=== PATIENT | female | born 1935 ===

== ENCOUNTER 2017-08-31 09:34 | Emergency (ER) | payer MEDICARE, MEDICAID ==
[2017-08-31 09:43] VITALS: BMI 23.8
[2017-08-31] MEDS ORDERED: Sodium Chloride 0.9% 1,000 ML IV STA (10:03)
[2017-08-31] MEDS ORDERED: Iohexol 240 (50 ml) PO ONE (10:03)
--- NOTE | 2017-08-31 10:14 | ED PDOC ---
HPI: Abdomen Time Seen by Provider: 08/31/17 09:52 Chief Complaint (Nursing): Abdominal Pain Chief Complaint (Provider): Abd pain History Per: Patient History/Exam Limitations: no limitations Onset/Duration Of Symptoms: Days (1 month) Current Symptoms Are (Timing): Still Present Additional History Per: Patient Additional Complaint(s): Diffuse abd pain, burning. Ongoing for 1 month. Nausea with it, but no vomit. No weakness, headaches, dizziness, cough, chest pain, dyspnea. Seen by Dr. Pritchett for it and got rx for a procedure she has not done yet. Pt. denies any diarrhea. No new food or drinks. Past Medical History Reviewed: Historical Data, Nursing Documentation, Vital Signs Vital Signs: Last Vital Signs Temp 97 F L 08/31/17 14:14 Pulse 87 08/31/17 14:14 Resp 19 08/31/17 14:14 BP 155/75 H 08/31/17 14:14 Pulse Ox 98 08/31/17 14:14 - Medical History PMH: Anxiety, HTN, Hypercholesterolemia, Hyperlipidemia, Osteoporosis Denies: Anemia, Chronic Kidney Disease - Surgical History Other surgeries: hysterectomy - Family History Family History: States: Unknown Family Hx - Living Arrangements Living Arrangements: With Family - Social History Current smoker - smoking cessation education provided: No Alcohol: None Drugs: Denies - Immunization History Hx Tetanus Toxoid Vaccination: No Hx Influenza Vaccination: Yes Hx Pneumococcal Vaccination: No - Home Medications Home Medications: Ambulatory Orders Medication Instructions Recorded Alprazolam [Xanax] 1 mg PO PRN PRN 10/10/15 Calcium Carbonate/Vitamin D3 1 tab PO DAILY 10/10/15 [Calcium 600-Vit D3 200 Tablet] Ibandronate Sodium 150 mg PO Q30D 10/10/15 Valsartan [Diovan] 160 mg PO DAILY 10/10/15 Acetaminophen [Tylenol Extra 1,000 mg PO BID #10 tablet 08/17/16 Strength] amLODIPine [Norvasc] 5 mg PO DAILY 08/17/16 Aspirin [Ecotrin] 81 mg PO DAILY 09/08/16 Bepotastine Besilate [Bepreve] 1 drop OU DAILY 09/08/16 traMADol [Ultram] 50 mg PO TID PRN 09/08/16 Pantoprazole [Protonix EC Tab] 40 mg PO DAILY #30 ect 09/11/16 Ciprofloxacin HCl [Cipro] 500 mg PO BID #6 tablet 01/05/17 Alendronate [Fosamax] 70 mg PO DAILY 08/31/17 Famotidine [Pepcid] 20 mg PO DAILY PRN #6 tab 08/31/17 - Allergies Allergies/Adverse Reactions: Allergies Allergy/AdvReac Type Severity Reaction Status Date / Time shrimp Allergy Verified 01/04/17 10:23 Review of Systems ROS Statement: Except As Marked, All Systems Reviewed And Found Negative Gastrointestinal: Positive for: Nausea, Abdominal Pain. Negative for: Vomiting Physical Exam - Reviewed Nursing Documentation Reviewed: Yes Vital Signs Reviewed: Yes - Physical Exam Appears: Positive for: Non-toxic, No Acute Distress Head Exam: Positive for: ATRAUMATIC, NORMAL INSPECTION, NORMOCEPHALIC Skin: Positive for: Normal Color, Warm, DRY Eye Exam: Positive for: EOMI, Normal appearance, PERRL ENT: Positive for: Normal ENT Inspection Neck: Positive for: Normal, Painless ROM Cardiovascular/Chest: Positive for: Regular Rate, Rhythm Respiratory: Positive for: CNT, Normal Breath Sounds Gastrointestinal/Abdominal: Positive for: Bowel Sounds, Soft, Tenderness (mild diffuse) Back: Positive for: Normal Inspection. Negative for: L CVA Tenderness, R CVA Tenderness Extremity: Positive for: Normal ROM. 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 Negative for: Motor/Sensory Deficits - Laboratory Results Result Diagrams: 08/31/17 10:25 08/31/17 10:25 Interpretation Of Abn Labs: no acute - ECG ECG: Positive for: Interpreted By Me, Viewed By Me ECG Rhythm: Positive for: Normal QRS, Normal ST Segment, Sinus Rhythm O2 Sat by Pulse Oximetry: 96 Pulse Ox Interpretation: Normal - CT Scan/US ct Other Rad Studies (CT/US): Read By Radiologist Other Rad Interpretation: no acute - Progress ED Course And Treament: 1422: Stable. AAOx3. Pain free. Tolerated po. No acute findings. Fu with pcp. Disposition - Clinical Impression Clinical Impression: Abdominal pain, Abnormal radiologic findings on diagnostic imaging of renal pelvis, ureter, or bladder - Patient ED Disposition Is Patient to be Admitted: No Counseled Patient/Family Regarding: Studies Performed, Diagnosis, Need For Followup - Disposition Referrals: [facility] [Outside] - 09/01/17 Disposition: Routine/Home Disposition Time: 14:24 Condition: STABLE Additional Instructions: Return if not better in 3 days. See the obgyn without fail in 3 days for adnexal structure seen on catscan. Devuelve si no mejor en 3 marie. Ronald el obgyn sin falta en 3 marie para la estructura anexial visto en catscan. Prescriptions: Famotidine [Pepcid] 20 mg PO DAILY PRN #6 tab PRN Reason: Pain Instructions: Acute Abdomen (Belly Pain), Adult (DC) Print Language: TURKMEN
[2017-08-31 10:38] LABS: BASO # 0.1 K/uL (0.0-0.2); EOS # 0.2 K/uL (0.0-0.7); EOS % 1.9 % (0.0-4.0); HEMOGLOBIN 11.7 g/dL (12.0-16.0); LYMPH # 1.7 K/uL (1.0-4.3); LYMPH % 21.7 % (20.0-40.0); MEAN CELL VOLUME 81.5 fl (81.0-99.0); MEAN CORPUSCULAR HEMOGLOBIN 26.4 pg (27.0-31.0); MEAN CORPUSCULAR HGB CONC 32.4 g/dL (33.0-37.0); MONO # 0.5 K/uL (0.0-0.8); MONO % 5.8 % (0.0-10.0); NEUT # 5.6 K/uL (1.8-7.0); NEUT % 69.6 % (50.0-75.0); RBC 4.41 Mil/uL (3.80-5.20); RED CELL DISTRIBUTION WIDTH 16.4 % (11.5-14.5); WHITE BLOOD COUNT 8.1 K/uL (4.8-10.8)
[2017-08-31 10:40] LABS: ALB/GLOB RATIO 1.1 (1.0-2.1); AST/SGOT 26 U/L (14-36); BLOOD UREA NITROGEN 16 mg/dl (7-17); CALCIUM 9.9 mg/dL (8.4-10.2); GFR AFRICAN-AMERICAN > 60; GFR NON-AFRICAN AMERICAN > 60
[2017-08-31 11:28] LABS: ALBUMIN 4.3 g/dL (3.5-5.0); ALT/SGPT 26 U/L (9-52); LIPASE 137 U/L (23-300)
[2017-08-31] MEDS ORDERED: Iohexol 300 100 ML IJ ONE (13:27)
--- NOTE | 2017-08-31 14:08 | CT ---
PROCEDURE: CT Abdomen and Pelvis with contrast HISTORY: COMPARISON: Multiple CT scans dating back to 10/10/2008None. TECHNIQUE: Contrast dose: 90 mL Omnipaque 300 Radiation dose: Total exam DLP = 423.7 mGy-cm. This CT exam was performed using one or more of the following dose reduction techniques: Automated exposure control, adjustment of the mA and/or kV according to patient size, and/or use of iterative reconstruction technique. FINDINGS: LOWER THORAX: Bibasilar atelectasis/scarring. Right lower lobe calcified granuloma. Heart size normal. LIVER: Unremarkable. No gross lesion or ductal dilatation. GALLBLADDER AND BILE DUCTS: Unremarkable. PANCREAS: Unremarkable. No gross lesion or ductal dilatation. SPLEEN: Unremarkable. ADRENALS: Unremarkable. No mass. KIDNEYS AND URETERS: Right lower pole cyst. No hydronephrosis. No solid mass. VASCULATURE: Calcific atherosclerosis. No aortic aneurysm. BOWEL: Colonic diverticulosis. No obstruction. No gross mural thickening. APPENDIX: Normal appendix. PERITONEUM: Unremarkable. No free fluid. No free air. LYMPH NODES: No enlarged lymph nodes. BLADDER: Unremarkable. REPRODUCTIVE: Stable 3.2 x 2.4 cm left adnexal soft tissue structure. BONES: No acute fracture. OTHER FINDINGS: None. IMPRESSION: No acute abdominal pelvic pathology. Chronic incidental findings as above.
[2017-08-31 14:14] VITALS: RESP 19; TEMP 97
--- NOTE | 2017-08-31 14:44 | CARD ---
APPROVED REPORT EKG Measurement Heart [id number] <Conclusion> Normal sinus rhythm Normal ECG
[2017-08-31 15:05] VITALS: BP 134/78; PULSE 78; O2SAT 98
== END 2017-08-31 15:05 | disposition home or self-care (01) ==
LOC: H.ER 09:34
DX: R10.9 Unspecified abdominal pain (principal); R93.41 Abnormal radiologic findings on diagnostic imaging of renal pelvis, ureter, or bladder; E78.00 Pure hypercholesterolemia, unspecified; F41.9 Anxiety disorder, unspecified; I10 Essential (primary) hypertension; M81.0 Age-related osteoporosis without current pathological fracture; Z79.82 Long term (current) use of aspirin; Z90.710 Acquired absence of both cervix and uterus
CPT/HCPCS: 74177; 80053; 83690; 84484; 85025; 93005; 96374; 99283; J7040; Q9966; Q9967

== ENCOUNTER 2017-10-31 15:15 | Emergency (ER) | payer MEDICARE, MEDICAID ==
[2017-10-31 15:16] VITALS: BMI 23.8
[2017-10-31 15:34] VITALS: RESP 16
[2017-10-31] MEDS ORDERED: Sodium Chloride 0.9% 1,000 ML IV STA (16:22)
[2017-10-31] MEDS ORDERED: Famotidine 20mg/50ml 20 MG/50 ML BAG IVPB ONE ×2 (16:30→16:53)
[2017-10-31 17:04] LABS: ALB/GLOB RATIO 1.1 (1.0-2.1); ALBUMIN 4.2 g/dL (3.5-5.0); ALT/SGPT 24 U/L (9-52); AST/SGOT 26 U/L (14-36); BLOOD UREA NITROGEN 16 mg/dl (7-17); GFR AFRICAN-AMERICAN > 60; GFR NON-AFRICAN AMERICAN > 60; LIPASE 139 U/L (23-300)
[2017-10-31 17:07] LABS: BASO % 0.6 % (0.0-2.0); EOS # 0.1 K/uL (0.0-0.7); EOS % 1.6 % (0.0-4.0); HEMOGLOBIN 11.3 g/dL (12.0-16.0); LYMPH # 1.4 K/uL (1.0-4.3); MEAN CELL VOLUME 83.8 fl (81.0-99.0); MEAN CORPUSCULAR HEMOGLOBIN 27.3 pg (27.0-31.0); MEAN CORPUSCULAR HGB CONC 32.6 g/dL (33.0-37.0); MEAN PLATELET VOLUME 8.8 fl (7.2-11.7); MONO # 0.5 K/uL (0.0-0.8); MONO % 6.7 % (0.0-10.0); NEUT # 4.8 K/uL (1.8-7.0); NEUT % 70.1 % (50.0-75.0); RBC 4.15 Mil/uL (3.80-5.20); RED CELL DISTRIBUTION WIDTH 15.9 % (11.5-14.5); WHITE BLOOD COUNT 6.9 K/uL (4.8-10.8)
--- NOTE | 2017-10-31 17:07 | ED PDOC ---
HPI: Abdomen Time Seen by Provider: 10/31/17 16:07 Chief Complaint (Nursing): Abdominal Pain Chief Complaint (Provider): Abdominal Pain History Per: Patient, Investigative Agent (#[id number]) History/Exam Limitations: no limitations Onset/Duration Of Symptoms: Days Outside of [place] travel?: No Location Of Pain/Discomfort: Periumbilical Additional Complaint(s): 82 year old female presents to the ED for evaluation of mid abdominal pain since eating dinner yesterday. Patient states her symptoms are associated wit dizziness(none now) and intermittent nausea, but no vomiting. Additionally, patient states she has been constipated for the last four days and is unsure if that is contributing to her symptoms. Patient took no medications prior to arrival. Patient reports a history of similar abdominal pain in the past. Patient was last seen here on August 31 for similar symptoms and had a CT done which resulted to be supposedly unremarkable. Otherwise: (-) chest pain, (-) shortness of breath, (-) cough, (-) headache, (-) rash, (-) recent travel, (-) urinary symptoms, (-) chills, (-) hematuria, (-) bloody stool, (-) palpitations (-) visual changes (-) joint pain. PMD: Dr. Pritchett Past Medical History Reviewed: Historical Data, Nursing Documentation, Vital Signs Vital Signs: Last Vital Signs Temp 98.5 F 10/31/17 20:11 Pulse 77 10/31/17 20:11 Resp 16 10/31/17 20:11 BP 135/79 10/31/17 20:11 Pulse Ox 100 11/02/17 20:54 - Medical History PMH: Anxiety, Diabetes, HTN, Hypercholesterolemia, Hyperlipidemia, Osteoporosis Denies: Anemia, Chronic Kidney Disease Other PMH: tubal ligation - Family History Family History: States: Unknown Family Hx - Social History Current smoker - smoking cessation education provided: No Alcohol: None Drugs: Denies - Home Medications Home Medications: Ambulatory Orders Medication Instructions Recorded Alprazolam [Xanax] 1 mg PO PRN PRN 10/10/15 Calcium Carbonate/Vitamin D3 1 tab PO DAILY 10/10/15 [Calcium 600-Vit D3 200 Tablet] Ibandronate Sodium 150 mg PO Q30D 10/10/15 Valsartan [Diovan] 160 mg PO DAILY 10/10/15 Acetaminophen [Tylenol Extra 1,000 mg PO BID #10 tablet 08/17/16 Strength] amLODIPine [Norvasc] 5 mg PO DAILY 08/17/16 Aspirin [Ecotrin] 81 mg PO DAILY 09/08/16 Bepotastine Besilate [Bepreve] 1 drop OU DAILY 09/08/16 traMADol [Ultram] 50 mg PO TID PRN 09/08/16 Pantoprazole [Protonix EC Tab] 40 mg PO DAILY #30 ect 09/11/16 Ciprofloxacin HCl [Cipro] 500 mg PO BID #6 tablet 01/05/17 Alendronate [Fosamax] 70 mg PO DAILY 08/31/17 Famotidine [Pepcid] 20 mg PO DAILY PRN #6 tab 08/31/17 Polyethylene Glycol 3350 [Miralax] 17 gm PO DAILY #204 gm 10/31/17 - Allergies Allergies/Adverse Reactions: Allergies Allergy/AdvReac Type Severity Reaction Status Date / Time shrimp Allergy Verified 01/04/17 10:23 Review of Systems ROS Statement: Except As Marked, All Systems Reviewed And Found Negative Constitutional: Negative for: Chills Cardiovascular: Negative for: Chest Pain Respiratory: Negative for: Cough, Shortness of Breath Gastrointestinal: Positive for: Nausea (intermittent), Abdominal Pain (mid), Constipation. Negative for: Vomiting, Hematochezia Genitourinary Female: Negative for: Hematuria Skin: Negative for: Rash Neurological: Positive for: Dizziness. Negative for: Headache Physical Exam - Reviewed Nursing Documentation Reviewed: Yes Vital Signs Reviewed: Yes - Physical Exam Comments: GENERAL APPEARANCE: Patient is awake, alert, oriented x 3, in no distress. SKIN: Warm, dry; (-) cyanosis. EYES: (-) conjunctival pallor, (-) scleral icterus. ENMT: Mucous membranes moist. NECK: Supple, FROM (-) tenderness, (-) stiffness, (-) lymphadenopathy. CHEST AND RESPIRATORY: (-) rales, (-) rhonchi, (-) wheezes; breath sounds equal bilaterally. Speaking in full sentences, respirations even and nonlabored. HEART AND CARDIOVASCULAR: (-) irregularity; (-) murmur, (-) gallop. ABDOMEN AND GI: (-) distention. Bowel sounds active x4; mild periumbilical tenderness, (-) guarding, (-) rebound, (-) palpable masses, (-) CVA tenderness. EXTREMITIES: (-) deformity, (-) edema, (-) calf tenderness (+) distal pulses. NEURO AND PSYCH: Mental status as above; (-) focal findings. Gait steady, speech clear. (-) facial asymmetry (-) aphasia - Laboratory Results Result Diagrams: 10/31/17 16:50 10/31/17 16:50 Urine dip results: Positive for: Bilirubin (small), Protein (trace). Negative for: Leukocyte Esterase, Blood, Nitrate, Ketones, Glucose - ECG O2 Sat by Pulse Oximetry: 100 (RA) Pulse Ox Interpretation: Normal Medical Decision Making Medical Decision Making: Impression: Abdominal Pain Plan: -- Glucose, Blood, POC -- IV Insertion -- Rn Wellness -- Zofran ODT 4 mg -- Pepcid 20 mg/50 ml Premix -- Sodium Chloride 1000 mls/hr -- Colace 200 mg PO -- EKG -- CMP -- Lipase -- Troponin I -- ED Urine Dipstick -- CBC with differentials -- CXR Two Views -- ABD 2 Views (Flat/UP or DECUB) Accucheck: 104 1710 CXR reviewed, radiology report follows COMPARISON: Frontal chest radiograph 03/14/2010. TECHNIQUE: Chest PA and lateral FINDINGS: LUNGS: No active pulmonary disease. Trace chronic fibrotic changes noted left base. PLEURA: No significant pleural effusion identified. No pneumothorax apparent. CARDIOVASCULAR: Normal. OSSEOUS STRUCTURES: No significant abnormalities. VISUALIZED UPPER ABDOMEN: Normal. OTHER FINDINGS: None. IMPRESSION: No interval acute cardiopulmonary disease appreciated. Left basilar chronic fibrosis again evident. 1745 KUB 2 views reviewed, radiology report follows HISTORY: constipation COMPARISON: No prior. FINDINGS: BOWEL: Moderate retained feces. No evidence of bowel obstruction. No hepatic or splenic enlargement. No masses or abnormal intra-abdominal calcifications. Is BONES: Normal. OTHER FINDINGS: None. IMPRESSION: No active disease. 1800 Labs reviewed. Magnesium Citrate 300 ml PO administered. 1930 Patient with small BM in ED. Patient reporting complete resolution of presenting symptoms at this time. On exam, patient remains AAOx3, in no acute distress. Lungs clear to auscultation, cardiac RRR, abdomen soft, non-tender, repeat neuro exam shows no focal findings. VSS, stable for discharge. Lab/Diagnostic results d/w the patient in [facility] detail. Diagnosis of abdominal pain, constipation d/w the patient. Based on history, exam and diagnostic results, plan will be for outpatient follow up. Patient instructed to follow-up with pmd / referral provided / the clinic in 1- 2 days without fail. Advised to take medication as prescribed. Return to the emergency room at any time for any new or worsening symptoms. Patient states she fully agrees with and understands discharge instructions. States that she agrees with the plan and disposition. Verbalized and repeated discharge instructions and plan. I have given the patient opportunity to ask any additional questions. Scribe Attestation: Documented by Charu Daugherty, acting as a scribe for Jacklyn Goff PA-C. Provider Scribe Attestation: All medical record entries made by the Scribe were at my direction and personally dictated by me. I have reviewed the chart and agree that the record accurately reflects my personal performance of the history, physical exam, medical decision making, and the department course for this patient. I have also personally directed, reviewed, and agree with the discharge instructions and disposition. Disposition - Clinical Impression Clinical Impression: Abdominal pain in female, Constipation, Dizziness - Patient ED Disposition Is Patient to be Admitted: No Counseled Patient/Family Regarding: Studies Performed, Diagnosis, Need For Followup, Rx Given - Disposition Referrals: Musa Ramirez MD [Staff Provider] - Disposition: Routine/Home Disposition Time: 19:41 Condition: STABLE Additional Instructions: FOLLOW UP WITH PMD/GI IN 1-2 DAYS WITHOUT FAIL. RETURN TO ED WITH ANY NEW OR WORSENING SYMPTOMS. Prescriptions: Polyethylene Glycol 3350 [Miralax] 17 gm PO DAILY #204 gm Instructions: Constipation in Adults, High Fiber Diet, Acute Abdomen (Belly Pain), Dizziness, Nonvertigo, (DC) Forms: [employer] (Mozambican) Print Language: BOTSWANAN - POA Present On Arrival: None Results - Lab Results Lab Results: 10/31/17 10/31/17 10/31/17 16:50 16:50 16:39 WBC 6.9 RBC 4.15 Hgb 11.3 L Hct 34.7 MCV 83.8 D MCH 27.3 MCHC 32.6 L RDW 15.9 H Plt Count 277 MPV 8.8 Neut % (Auto) 70.1 Lymph % (Auto) 21.0 [place] % (Auto) 6.7 Eos % (Auto) 1.6 Baso % (Auto) 0.6 Neut # (Auto) 4.8 Lymph # (Auto) 1.4 [place] # (Auto) 0.5 Eos # (Auto) 0.1 Baso # (Auto) 0.0 Sodium 142 Potassium 4.9 Chloride 104 Carbon Dioxide 29 Anion Gap 14 BUN 16 Creatinine 0.7 Est GFR ( Amer) > 60 Est GFR (Non-Af Amer) > 60 POC Glucose (mg/dL) 104 Random Glucose 110 H Calcium 10.0 Total Bilirubin 0.5 AST 26 ALT 24 Alkaline Phosphatase 69 Troponin I < 0.0120 Total Protein 8.1 Albumin 4.2 Globulin 3.9 Albumin/Globulin Ratio 1.1 Lipase 139
[2017-10-31] MEDS ORDERED: Magnesium Citrate Oral SOL (300 ml) PO STA (17:51)
[2017-10-31] MEDS ORDERED: Magnesium Citrate Oral SOL (300 ml) ONE (18:11)
--- NOTE | 2017-10-31 18:39 | RAD ---
HISTORY: constipation COMPARISON: No prior. FINDINGS: BOWEL: Moderate retained feces. No evidence of bowel obstruction. No hepatic or splenic enlargement. No masses or abnormal intra-abdominal calcifications. Is BONES: Normal. OTHER FINDINGS: None. IMPRESSION: No active disease.
--- NOTE | 2017-10-31 19:16 | RAD ---
HISTORY: dizziness COMPARISON: Frontal chest radiograph 03/14/2010. TECHNIQUE: Chest PA and lateral FINDINGS: LUNGS: No active pulmonary disease. Trace chronic fibrotic changes noted left base. PLEURA: No significant pleural effusion identified. No pneumothorax apparent. CARDIOVASCULAR: Normal. OSSEOUS STRUCTURES: No significant abnormalities. VISUALIZED UPPER ABDOMEN: Normal. OTHER FINDINGS: None. IMPRESSION: No interval acute cardiopulmonary disease appreciated. Left basilar chronic fibrosis again evident.
[2017-10-31 20:12] VITALS: BP 135/79; PULSE 77; TEMP 98.5
--- NOTE | 2017-11-01 16:45 | CARD ---
APPROVED REPORT EKG Measurement Heart [id number] ID [id number] <Conclusion> Normal sinus rhythm Normal ECG
[2017-11-02 20:48] VITALS: O2SAT 100
== END 2017-10-31 20:12 | disposition home or self-care (01) ==
LOC: H.ER 15:15
DX: R10.9 Unspecified abdominal pain (principal); K59.00 Constipation, unspecified; R42 Dizziness and giddiness; E11.9 Type 2 diabetes mellitus without complications; E78.00 Pure hypercholesterolemia, unspecified; F41.9 Anxiety disorder, unspecified; I10 Essential (primary) hypertension; M81.0 Age-related osteoporosis without current pathological fracture; Z79.82 Long term (current) use of aspirin
CPT/HCPCS: 71046; 74019; 80053; 82948; 83690; 84484; 85025; 93005; 96365; 99283; J7030

== ENCOUNTER 2017-12-31 11:42 | Emergency (ER) | payer MEDICARE, MEDICAID ==
[2017-12-31 11:44] VITALS: BMI 23.8
[2017-12-31 13:17] LABS: SQUAMOUS EPITHIAL 3 /hpf (0-5); URINE BILIRUBIN NEGATIVE (NEGATIVE); URINE BLOOD MODERATE (NEGATIVE); URINE CLARITY TURBID (Clear); URINE COLOR AMBER (YELLOW); URINE GLUCOSE (UA) NEG (Normal); URINE LEUKOCYTE ESTERASE LARGE Leu/uL (Negative); URINE PROTEIN 100 mg/dL (NEGATIVE); URINE UROBILINOGEN 0.2-1.0 mg/dL (0.2-1.0)
--- NOTE | 2017-12-31 13:17 | ED PDOC ---
HPI: Female Pain Time Seen by Provider: 12/31/17 12:17 Chief Complaint (Nursing): Female Genitourinary Chief Complaint (Provider): Female Genitourinary History Per: Patient History/Exam Limitations: no limitations Onset/Duration Of Symptoms: Days (x3) Current Symptoms Are (Timing): Still Present Additional Complaint(s): 82 year old female with a hx of osteoporosis, high cholesterol, and hypertension presents to the ED for evaluation of lower abdominal pain and dysuria for three days. She reports nausea but denies any fever or vomiting. PMD: Onel Pritchett Past Medical History Reviewed: Historical Data, Nursing Documentation, Vital Signs Vital Signs: Last Vital Signs Temp 98.2 F 12/31/17 12:07 Pulse 80 12/31/17 12:07 Resp 20 12/31/17 12:07 BP 151/71 H 12/31/17 12:07 Pulse Ox 97 12/31/17 12:07 - Medical History PMH: Anxiety, Diabetes, HTN, Hypercholesterolemia, Hyperlipidemia, Osteoporosis Denies: Anemia, Chronic Kidney Disease - Surgical History Surgical History: No Surg Hx - Family History Family History: States: Unknown Family Hx - Immunization History Hx Tetanus Toxoid Vaccination: No Hx Influenza Vaccination: Yes Hx Pneumococcal Vaccination: No - Home Medications Home Medications: Ambulatory Orders Medication Instructions Recorded Alprazolam [Xanax] 1 mg PO PRN PRN 10/10/15 Calcium Carbonate/Vitamin D3 1 tab PO DAILY 10/10/15 [Calcium 600-Vit D3 200 Tablet] Ibandronate Sodium 150 mg PO Q30D 10/10/15 Valsartan [Diovan] 160 mg PO DAILY 10/10/15 Acetaminophen [Tylenol Extra 1,000 mg PO BID #10 tablet 08/17/16 Strength] amLODIPine [Norvasc] 5 mg PO DAILY 08/17/16 Aspirin [Ecotrin] 81 mg PO DAILY 09/08/16 Bepotastine Besilate [Bepreve] 1 drop OU DAILY 09/08/16 traMADol [Ultram] 50 mg PO TID PRN 09/08/16 Pantoprazole [Protonix EC Tab] 40 mg PO DAILY #30 ect 09/11/16 Ciprofloxacin HCl [Cipro] 500 mg PO BID #6 tablet 01/05/17 Alendronate [Fosamax] 70 mg PO DAILY 08/31/17 Famotidine [Pepcid] 20 mg PO DAILY PRN #6 tab 08/31/17 Polyethylene Glycol 3350 [Miralax] 17 gm PO DAILY #204 gm 10/31/17 Cephalexin [Keflex] 500 mg PO TID #15 capsule 12/31/17 Phenazopyridine HCl [Pyridium] 200 mg PO BID PRN #5 tablet 12/31/17 - Allergies Allergies/Adverse Reactions: Allergies Allergy/AdvReac Type Severity Reaction Status Date / Time shrimp Allergy VOMITING Verified 12/31/17 12:07 Review of Systems ROS Statement: Except As Marked, All Systems Reviewed And Found Negative Constitutional: Negative for: Fever Gastrointestinal: Positive for: Nausea, Abdominal Pain (lower). Negative for: Vomiting Genitourinary Female: Positive for: Dysuria Physical Exam - Reviewed Nursing Documentation Reviewed: Yes Vital Signs Reviewed: Yes - Physical Exam Appears: Positive for: No Acute Distress Head Exam: Positive for: ATRAUMATIC, NORMOCEPHALIC Skin: Positive for: Normal Color, Warm, Dry Eye Exam: Positive for: Normal appearance Neck: Positive for: Normal, Painless ROM, Supple Cardiovascular/Chest: Positive for: Regular Rate, Rhythm Respiratory: Positive for: Normal Breath Sounds. Negative for: Accessory Muscle Use, Respiratory Distress Gastrointestinal/Abdominal: Positive for: Soft, Tenderness (mild suprapubic) Back: Positive for: Normal Inspection. Negative for: L CVA Tenderness, R CVA Tenderness Neurologic/Psych: Positive for: Alert, Oriented (x3). Negative for: Motor/ Sensory Deficits - Laboratory Results Result Diagrams: 12/31/17 13:19 12/31/17 13:19 - ECG O2 Sat by Pulse Oximetry: 97 (RA) Pulse Ox Interpretation: Normal Medical Decision Making Medical Decision Making: Time: 12:17 Initial Impression: dysuria, lower abdominal pain Initial Plan: --VBG --BMP --CBC with differential --Pyridium 200 mg PO --Rocephin 1 gm IVPB --Blood culture --Urine culture --Urinalysis Scribe Attestation: Documented by Luz Monroe, acting as a scribe for Keith Nevarez PA-C. Provider Scribe Attestation: All medical record entries made by the Scribe were at my direction and personally dictated by me. I have reviewed the chart and agree that the record accurately reflects my personal performance of the history, physical exam, medical decision making, and the department course for this patient. I have also personally directed, reviewed, and agree with the discharge instructions and disposition. Disposition - Clinical Impression Clinical Impression: Urinary tract infection - Patient ED Disposition Is Patient to be Admitted: No - Disposition Disposition: Routine/Home Disposition Time: 15:03 Condition: FAIR Prescriptions: Cephalexin [Keflex] 500 mg PO TID #15 capsule Phenazopyridine HCl [Pyridium] 200 mg PO BID PRN #5 tablet PRN Reason: Urinary Discomt Instructions: Urinary Tract Infection, Adult (DC) Print Language: ICELANDIC
[2017-12-31 13:25] LABS: BASO # 0.1 K/uL (0.0-0.2); BASO % 0.7 % (0.0-2.0); EOS # 0.1 K/uL (0.0-0.7); EOS % 1.3 % (0.0-4.0); HEMOGLOBIN 11.5 g/dL (12.0-16.0); LYMPH # 1.3 K/uL (1.0-4.3); LYMPH % 14.2 % (20.0-40.0); MEAN CELL VOLUME 84.6 fl (81.0-99.0); MEAN CORPUSCULAR HEMOGLOBIN 27.4 pg (27.0-31.0); MEAN CORPUSCULAR HGB CONC 32.3 g/dL (33.0-37.0); MEAN PLATELET VOLUME 8.9 fl (7.2-11.7); MONO # 0.6 K/uL (0.0-0.8); MONO % 6.2 % (0.0-10.0); NEUT # 7.1 K/uL (1.8-7.0); NEUT % 77.6 % (50.0-75.0); RBC 4.19 Mil/uL (3.80-5.20); RED CELL DISTRIBUTION WIDTH 15.5 % (11.5-14.5); WHITE BLOOD COUNT 9.2 K/uL (4.8-10.8)
[2017-12-31] MEDS ORDERED: cefTRIAXone (Rocephin) 1 gm Inj ONE (13:30)
[2017-12-31 13:32] LABS: BLOOD UREA NITROGEN 14 mg/dl (7-17); CALCIUM 9.5 mg/dL (8.4-10.2); GFR AFRICAN-AMERICAN > 60; GFR NON-AFRICAN AMERICAN > 60
[2017-12-31] MEDS: cefTRIAXone (Rocephin) 1 gm Inj IVPB ONE (14:09)
[2017-12-31 14:44] LABS: VENOUS BLOOD GAS BASE EXCESS 1.8 mmol/L (0.0-2.0); VENOUS BLOOD GAS PCO2 53 mmHg (40-60); VENOUS BLOOD GAS PO2 19 mm/Hg (30-55); VENOUS BLOOD PH 7.34 (7.32-7.43)
[2017-12-31 15:17] VITALS: BP 138/78; PULSE 70; RESP 18; TEMP 98.4; O2SAT 99
== END 2017-12-31 15:17 | disposition home or self-care (01) ==
LOC: H.ER 11:42
DX: N39.0 Urinary tract infection, site not specified (principal); E11.9 Type 2 diabetes mellitus without complications; E78.00 Pure hypercholesterolemia, unspecified; I10 Essential (primary) hypertension
CPT/HCPCS: 80048; 81003; 82803; 85025; 87040; 87086; 87181; 96374; 99283; J0696

== ENCOUNTER 2018-01-31 17:14 | Emergency (ER) | payer MEDICARE, MEDICAID ==
[2018-01-31 17:15] VITALS: BMI 23.8
[2018-01-31 17:25] VITALS: TEMP 98.4
[2018-01-31] MEDS ORDERED: Iohexol 240 (50 ml) PO STA (17:48)
[2018-01-31] MEDS ORDERED: Iohexol 240 (50 ml) ONE (18:16)
[2018-01-31 18:19] LABS: BASO # 0.1 K/uL (0.0-0.2); EOS # 0.2 K/uL (0.0-0.7); EOS % 2.5 % (0.0-4.0); HEMOGLOBIN 11.4 g/dL (12.0-16.0); LYMPH # 1.7 K/uL (1.0-4.3); LYMPH % 20.4 % (20.0-40.0); MEAN CELL VOLUME 84.8 fl (81.0-99.0); MEAN CORPUSCULAR HEMOGLOBIN 27.7 pg (27.0-31.0); MEAN CORPUSCULAR HGB CONC 32.6 g/dL (33.0-37.0); MEAN PLATELET VOLUME 8.9 fl (7.2-11.7); MONO # 0.7 K/uL (0.0-0.8); MONO % 8.3 % (0.0-10.0); NEUT # 5.7 K/uL (1.8-7.0); NEUT % 67.8 % (50.0-75.0); RBC 4.13 Mil/uL (3.80-5.20); RED CELL DISTRIBUTION WIDTH 15.4 % (11.5-14.5); WHITE BLOOD COUNT 8.4 K/uL (4.8-10.8)
[2018-01-31 18:24] LABS: SQUAMOUS EPITHIAL < 1 /hpf (0-5); URINE BACTERIA RARE (<OCC); URINE BILIRUBIN NEGATIVE (NEGATIVE); URINE BLOOD NEGATIVE (NEGATIVE); URINE CLARITY SLIGHTY-CLOUDY (Clear); URINE COLOR STRAW (YELLOW); URINE GLUCOSE (UA) NEG (Normal); URINE LEUKOCYTE ESTERASE TRACE Leu/uL (Negative); URINE PROTEIN NEGATIVE (NEGATIVE); URINE UROBILINOGEN 0.2-1.0 mg/dL (0.2-1.0)
[2018-01-31 18:25] LABS: INR 1.1; PROTHROMBIN TIME 11.8 Seconds (9.8-13.1)
[2018-01-31 18:28] LABS: PARTIAL THROMBOPLASTIN TIME 29.7 Seconds (25.6-37.1)
[2018-01-31 18:30] LABS: ALB/GLOB RATIO 1.3 (1.0-2.1); ALBUMIN 4.5 g/dL (3.5-5.0); ALT/SGPT 25 U/L (9-52); AST/SGOT 31 U/L (14-36); BLOOD UREA NITROGEN 19 mg/dl (7-17); CALCIUM 9.5 mg/dL (8.4-10.2); GFR NON-AFRICAN AMERICAN > 60; LIPASE 148 U/L (23-300)
--- NOTE | 2018-01-31 18:35 | ED PDOC ---
HPI: Abdomen Time Seen by Provider: 01/31/18 17:29 Chief Complaint (Nursing): Chest Pain Chief Complaint (Provider): abdominal pain History Per: Patient History/Exam Limitations: no limitations Onset/Duration Of Symptoms: Hrs (x1 [employer]ER[employer]) Current Symptoms Are (Timing): Still Present Associated Symptoms: Nausea. denies: Vomiting, Diarrhea Additional Complaint(s): Haritha Duckworth is an 82 year old female, with a past medical history HTN, gastritis and osteoarthritis, who presents to the emergency department for evaluation of abdominal pain onset x1 hr prior to arrival. Patient reports she was just at rest and suddenly felt pain radiating from abdomen up to her chest. She still feels pain and describes it as pressure. Prior to onset she was feeling well and had a normal lunch at 14:00 today. She also reports some nausea , lightheadedness, generalized weakness and some dizziness but denies any vomiting, diarrhea or shortness of breath. No further medical complaints. PMD: Dr. Parks Past Medical History Reviewed: Historical Data, Nursing Documentation, Vital Signs Vital Signs: Last Vital Signs Temp 98.4 F 01/31/18 17:23 Pulse 77 01/31/18 22:42 Resp 20 01/31/18 22:42 BP 142/60 01/31/18 22:42 Pulse Ox 100 01/31/18 22:42 - Medical History PMH: Anxiety, Diabetes, HTN, Hypercholesterolemia, Hyperlipidemia, Osteoporosis Denies: Anemia, Chronic Kidney Disease - Surgical History Other surgeries: tubal ligation and sinus surgery - Family History Family History: States: Hypertension - Social History Current smoker - smoking cessation education provided: No Alcohol: None Drugs: Denies - Immunization History Hx Tetanus Toxoid Vaccination: No Hx Influenza Vaccination: Yes Hx Pneumococcal Vaccination: No - Home Medications Home Medications: Ambulatory Orders Medication Instructions Recorded Alprazolam [Xanax] 1 mg PO PRN PRN 10/10/15 Calcium Carbonate/Vitamin D3 1 tab PO DAILY 10/10/15 [Calcium 600-Vit D3 200 Tablet] Ibandronate Sodium 150 mg PO Q30D 10/10/15 Valsartan [Diovan] 160 mg PO DAILY 10/10/15 Acetaminophen [Tylenol Extra 1,000 mg PO BID #10 tablet 08/17/16 Strength] amLODIPine [Norvasc] 5 mg PO DAILY 08/17/16 Aspirin [Ecotrin] 81 mg PO DAILY 09/08/16 Bepotastine Besilate [Bepreve] 1 drop OU DAILY 09/08/16 traMADol [Ultram] 50 mg PO TID PRN 09/08/16 Pantoprazole [Protonix EC Tab] 40 mg PO DAILY #30 ect 09/11/16 Ciprofloxacin HCl [Cipro] 500 mg PO BID #6 tablet 01/05/17 Alendronate [Fosamax] 70 mg PO DAILY 08/31/17 Famotidine [Pepcid] 20 mg PO DAILY PRN #6 tab 08/31/17 Polyethylene Glycol 3350 [Miralax] 17 gm PO DAILY #204 gm 10/31/17 Cephalexin [Keflex] 500 mg PO TID #15 capsule 12/31/17 Phenazopyridine HCl [Pyridium] 200 mg PO BID PRN #5 tablet 12/31/17 - Allergies Allergies/Adverse Reactions: Allergies Allergy/AdvReac Type Severity Reaction Status Date / Time shrimp Allergy VOMITING Verified 01/31/18 17:23 Review of Systems ROS Statement: Except As Marked, All Systems Reviewed And Found Negative Constitutional: Positive for: Weakness (generalized) Cardiovascular: Positive for: Chest Pain, Light Headedness Respiratory: Negative for: Shortness of Breath Gastrointestinal: Positive for: Nausea, Abdominal Pain. Negative for: Vomiting , Diarrhea Neurological: Positive for: Dizziness Physical Exam - Reviewed Nursing Documentation Reviewed: Yes Vital Signs Reviewed: Yes - Physical Exam Appears: Positive for: Well, No Acute Distress Head Exam: Positive for: ATRAUMATIC, NORMAL INSPECTION, NORMOCEPHALIC Skin: Positive for: Normal Color, Warm, Dry Eye Exam: Positive for: Normal appearance ENT: Positive for: Pharynx Is (clear) Neck: Positive for: Painless ROM, Supple Cardiovascular/Chest: Positive for: Regular Rate, Rhythm. Negative for: Murmur Respiratory: Positive for: Normal Breath Sounds. Negative for: Respiratory Distress Gastrointestinal/Abdominal: Positive for: Tenderness (to deep palpation of supra umbilical area). Negative for: Mass, Guarding, Rebound, Other (Hernandez's sign and McBurney's point) Back: Positive for: Normal Inspection. Negative for: Decreased ROM Extremity: Positive for: Normal ROM. Negative for: Deformity Lymphatic: Negative for: Adenopathy Neurologic/Psych: Positive for: Alert, Oriented. Negative for: Motor/Sensory Deficits - Laboratory Results Result Diagrams: 01/31/18 18:10 01/31/18 18:10 - ECG O2 Sat by Pulse Oximetry: 96 (RA) Pulse Ox Interpretation: Normal Medical Decision Making Medical Decision Making: Time: 17:29 Initial Impression: abdominal pain. Differential diagnosis includes but not limited to gastritis, mesenteric ischemia, ulcer and colitis Initial Plan: --Abd Pelvis PO & IV Contrast [CT] --CMP --Lact Acid, Plasma --Lipase --Troponin I --CBC w/ differential --PTT --PT --Omnipaque 240 50 ml PO --Blood culture --Urine culture --Urinalysis --Reevaluation 22:04 Abdomen/Pelvis CT EXAM: CT Abdomen and Pelvis With Intravenous Contrast CLINICAL HISTORY: 82 years old, female; Pain; Abdominal pain; Epigastric; Patient HX: Gastritis; Additional info: Abd pain TECHNIQUE: Axial computed tomography images of the abdomen and pelvis with intravenous contrast. All CT scans at this facility use at least one of these dose optimization techniques: automated exposure control; mA and/or kV adjustment per patient size (includes targeted exams where dose is matched to clinical indication); or iterative reconstruction. Coronal and sagittal reformatted images were created and reviewed. CONTRAST: 95 mL of [id number] was administered intravenously. COMPARISON: CT - ABD PELVIS PO IV CONTRAST 08/31/2017 1:40 PM FINDINGS: Lung bases: Linear atelectasis or fibrosis in the lung bases. Heart: Coronary artery calcifications. Mediastinum: Small esophageal hiatal hernia. ABDOMEN: Liver: Unremarkable. No mass. Gallbladder and bile ducts: Unremarkable. No calcified stones. No ductal dilation. Pancreas: Unremarkable. No mass. No ductal dilation. Spleen: Unremarkable. No splenomegaly. Adrenals: Unremarkable. No mass. Kidneys and ureters: Cyst in the lower pole right kidney measuring larger than a centimeter in size. Stomach and bowel: Extensive diverticulosis of the colon without evidence of diverticulitis. No obstruction. PELVIS: Appendix: Normal appendix. Bladder: Unremarkable. No mass. Reproductive: Unremarkable as visualized. ABDOMEN and PELVIS: Intraperitoneal space: Unremarkable. No free air. No significant fluid collection. Bones/joints: No acute fracture. No dislocation. Soft tissues: Unremarkable. Vasculature: Unremarkable. No abdominal aortic aneurysm. Lymph nodes: Unremarkable. No enlarged lymph nodes. IMPRESSION: No acute findings. 22:10 -Labs unremarkable, patient with no new symptoms while in ER. Patient is medically stable for discharge and advised to follow up. Scribe Attestation: Documented by Fabio Coffey, acting as a scribe for Sil Martin MD. Provider Scribe Attestation: All medical record entries made by the Scribe were at my direction and personally dictated by me. I have reviewed the chart and agree that the record accurately reflects my personal performance of the history, physical exam, medical decision making, and the department course for this patient. I have also personally directed, reviewed, and agree with the discharge instructions and disposition. Disposition - Clinical Impression Clinical Impression: Abdominal pain, Weakness - Disposition Referrals: Onel Parks MD [Family Provider] - (VISITA DR PARKS EN 2-3 [facility]) Disposition: Routine/Home Disposition Time: 22:10 Condition: STABLE Instructions: Acute Abdomen (Belly Pain), Adult (DC), Weakness (ED) Forms: [employer] (Guinean) Print Language: BURUNDIAN
[2018-01-31] MEDS ORDERED: Iohexol 300 100 ML IJ ONE (20:05)
[2018-01-31] MEDS ORDERED: Sodium Chloride 0.9% 50 ML IV ONE (20:05)
[2018-01-31 22:43] VITALS: BP 142/60; PULSE 77; RESP 20
[2018-01-31 23:00] VITALS: O2SAT 96
--- NOTE | 2018-02-01 08:44 | CT ---
Date of service: 01/31/2018 PROCEDURE: CT Abdomen and Pelvis with contrast HISTORY: abd pain COMPARISON: 08/31/2017. TECHNIQUE: Contrast dose: Radiation dose: Total exam DLP = mGy-cm. This CT exam was performed using one or more of the following dose reduction techniques: Automated exposure control, adjustment of the mA and/or kV according to patient size, and/or use of iterative reconstruction technique. FINDINGS: LOWER THORAX: Mild left basilar fibrosis. LIVER: Unremarkable. No gross lesion or ductal dilatation. GALLBLADDER AND BILE DUCTS: Unremarkable. PANCREAS: Unremarkable. No gross lesion or ductal dilatation. SPLEEN: Unremarkable. ADRENALS: Unremarkable. No mass. KIDNEYS AND URETERS: Right lower pole renal cyst. . No hydronephrosis. No solid mass. VASCULATURE: Unremarkable. No aortic aneurysm. BOWEL: Colonic diverticulosis. No obstruction. No gross mural thickening. APPENDIX: Normal appendix. PERITONEUM: Unremarkable. No free fluid. No free air. LYMPH NODES: Unremarkable. No enlarged lymph nodes. BLADDER: Unremarkable. REPRODUCTIVE: Stable 3.2 x 2.4 cm left adnexal soft tissue structure. BONES: No acute fracture. OTHER FINDINGS: None. IMPRESSION: Stable exam. No acute findings.
== END 2018-01-31 22:43 | disposition home or self-care (01) ==
LOC: H.ER 17:14
DX: R10.9 Unspecified abdominal pain (principal); M62.81 Muscle weakness (generalized); R07.89 Other chest pain; R42 Dizziness and giddiness; E11.9 Type 2 diabetes mellitus without complications; E78.00 Pure hypercholesterolemia, unspecified; I10 Essential (primary) hypertension; M81.0 Age-related osteoporosis without current pathological fracture
CPT/HCPCS: 74177; 80053; 81003; 83605; 83690; 84484; 85025; 85610; 85730; 87040; 87086; 87181; 99285; Q9966; Q9967

== ENCOUNTER 2018-06-27 13:49 | Emergency (ER) | payer MEDICARE, MEDICAID ==
[2018-06-27 13:49] VITALS: BMI 23.8
--- NOTE | 2018-06-27 14:26 | ED PDOC ---
HPI: Chest Pain Time Seen by Provider: 06/27/18 14:14 Chief Complaint (Nursing): Chest Pain History Per: Patient (Haritha is here because of concerns over chest pain that started yesterday night. Patient noted that the pain progressed from upper abdominal pain that started after she had some ice cream last night. Then she noted the lower substernal pain that is non radiating and not associated with nausea, vomiting, neck pain, shortness of breath. ) History/Exam Limitations: no limitations Current Symptoms Are (Timing): Better Context: Food Severity: Mild Past Medical History Reviewed: Historical Data, Nursing Documentation, Vital Signs Vital Signs: Last Vital Signs Temp 97 F L 06/27/18 13:56 Pulse 104 H 06/27/18 13:56 Resp 16 06/27/18 13:56 BP 177/79 H 06/27/18 13:56 Pulse Ox 98 06/27/18 13:56 - Medical History PMH: Anxiety, Diabetes, HTN, Hypercholesterolemia, Hyperlipidemia, Osteoporosis Denies: Anemia, Chronic Kidney Disease - Family History Family History: States: Unknown Family Hx, Hypertension - Immunization History Hx Tetanus Toxoid Vaccination: No Hx Influenza Vaccination: Yes Hx Pneumococcal Vaccination: No - Home Medications Home Medications: Ambulatory Orders Medication Instructions Recorded Alprazolam [Xanax] 1 mg PO PRN PRN 10/10/15 Calcium Carbonate/Vitamin D3 1 tab PO DAILY 10/10/15 [Calcium 600-Vit D3 200 Tablet] Ibandronate Sodium 150 mg PO Q30D 10/10/15 Valsartan [Diovan] 160 mg PO DAILY 10/10/15 Acetaminophen [Tylenol Extra 1,000 mg PO BID #10 tablet 08/17/16 Strength] amLODIPine [Norvasc] 5 mg PO DAILY 08/17/16 Aspirin [Ecotrin] 81 mg PO DAILY 09/08/16 Bepotastine Besilate [Bepreve] 1 drop OU DAILY 09/08/16 traMADol [Ultram] 50 mg PO TID PRN 09/08/16 Pantoprazole [Protonix EC Tab] 40 mg PO DAILY #30 ect 09/11/16 Ciprofloxacin HCl [Cipro] 500 mg PO BID #6 tablet 01/05/17 Alendronate [Fosamax] 70 mg PO DAILY 08/31/17 Famotidine [Pepcid] 20 mg PO DAILY PRN #6 tab 08/31/17 Polyethylene Glycol 3350 [Miralax] 17 gm PO DAILY #204 gm 10/31/17 Cephalexin [Keflex] 500 mg PO TID #15 capsule 12/31/17 Phenazopyridine HCl [Pyridium] 200 mg PO BID PRN #5 tablet 12/31/17 Sulfamethoxazole/Trimethoprim 1 each PO BID #20 tablet 02/03/18 [Bactrim 400-80 mg Tablet] - Allergies Allergies/Adverse Reactions: Allergies Allergy/AdvReac Type Severity Reaction Status Date / Time shrimp Allergy VOMITING Verified 06/27/18 13:54 Review of Systems ROS Statement: Except As Marked, All Systems Reviewed And Found Negative Constitutional: Negative for: Fever, Chills Cardiovascular: Positive for: Chest Pain Respiratory: Negative for: Cough, Shortness of Breath Gastrointestinal: Positive for: Abdominal Pain. Negative for: Nausea, Vomiting, Diarrhea Physical Exam - Reviewed Nursing Documentation Reviewed: Yes Vital Signs Reviewed: Yes - Physical Exam Appears: Positive for: Well, Non-toxic, No Acute Distress Head Exam: Positive for: ATRAUMATIC, NORMAL INSPECTION, NORMOCEPHALIC Skin: Positive for: Normal Color, Warm, DRY Eye Exam: Positive for: Normal appearance ENT: Positive for: Normal ENT Inspection Neck: Positive for: Normal Cardiovascular/Chest: Positive for: Regular Rate, Rhythm Respiratory: Positive for: CNT, Normal Breath Sounds Gastrointestinal/Abdominal: Positive for: Normal Exam Back: Positive for: Normal Inspection Extremity: Positive for: Normal ROM Neurologic/Psych: Positive for: Alert, Oriented - ECG O2 Sat by Pulse Oximetry: 98 Disposition - Clinical Impression Clinical Impression: Chest pain, Abdominal pain - Patient ED Disposition Is Patient to be Admitted: Transfer of Care Doctor Will See Patient In The: Office - Disposition Disposition: Transfer of Care Disposition Time: 14:40 Condition: STABLE Forms: [employer] (Czech) Patient Signed Over To: Sil Martin
[2018-06-27 14:42] VITALS: RESP 18; TEMP 98
[2018-06-27 14:51] LABS: BASO # 0.1 K/uL (0.0-0.2); EOS # 0.1 K/uL (0.0-0.7); EOS % 0.8 % (0.0-4.0); HEMOGLOBIN 11.5 g/dL (12.0-16.0); LYMPH # 1.6 K/uL (1.0-4.3); MEAN CORPUSCULAR HEMOGLOBIN 27.2 pg (27.0-31.0); MEAN CORPUSCULAR HGB CONC 32.4 g/dL (33.0-37.0); MEAN PLATELET VOLUME 8.7 fl (7.2-11.7); MONO # 0.6 K/uL (0.0-0.8); MONO % 7.8 % (0.0-10.0); NEUT # 5.2 K/uL (1.8-7.0); NEUT % 69.4 % (50.0-75.0); RBC 4.24 Mil/uL (3.80-5.20); RED CELL DISTRIBUTION WIDTH 15.2 % (11.5-14.5); WHITE BLOOD COUNT 7.5 K/uL (4.8-10.8)
--- NOTE | 2018-06-27 15:08 | ED PDOC ---
- Laboratory Results Result Diagrams: 06/27/18 14:41 06/27/18 14:41 - ECG ECG: Positive for: Interpreted By Me ECG Rhythm: Positive for: Normal QRS, Normal ST Segment, Sinus Rhythm O2 Sat by Pulse Oximetry: 98 (RA) Pulse Ox Interpretation: Normal Medical Decision Making Medical Decision Making: Time: 15:00 Patient was signed out to me by Dr. Gabriel pending ER workup, reassessment, and fin al ER disposition. Labs unremarkable. DW pt findings. Stable for discharge with followup PMD next week. Scribe Attestation: Documented by Asya Guerrero, acting as a scribe for Sil Martin MD. Provider Scribe Attestation: All medical record entries made by the Scribe were at my direction and personally dictated by me. I have reviewed the chart and agree that the record accurately reflects my personal performance of the history, physical exam, medical decision making, and the department course for this patient. I have also personally directed, reviewed, and agree with the discharge instructions and disposition. Disposition Counseled Patient/Family Regarding: Studies Performed, Diagnosis, Need For Followup, Rx Given - Clinical Impression Clinical Impression: Chest pain, Abdominal pain - POA Present On Arrival: None - Disposition Referrals: Onel Parks MD [Family Provider] - (VISITA DR PARKS EN 2-3 [facility]) Disposition: Routine/Home Disposition Time: 17:21 Condition: STABLE Prescriptions: Omeprazole Magnesium [Prilosec Otc] 20 mg PO DAILY #30 tcp Instructions: Acute Abdomen (Belly Pain), Adult (DC) Print Language: FINNISH
[2018-06-27 15:32] LABS: BLOOD UREA NITROGEN 20 mg/dl (7-17); CALCIUM 9.9 mg/dL (8.4-10.2); GFR NON-AFRICAN AMERICAN > 60
[2018-06-27 17:02] LABS: ALB/GLOB RATIO 1.1 (1.0-2.1); ALBUMIN 4.2 g/dL (3.5-5.0); BILIRUBIN,DIRECT 0.1 mg/ml (0.0-0.4)
[2018-06-27 21:44] VITALS: BP 112/56; PULSE 78; O2SAT 99
== END 2018-06-27 18:00 | disposition home or self-care (01) ==
LOC: H.ER 13:49
DX: R07.89 Other chest pain (principal); R10.10 Upper abdominal pain, unspecified; E11.9 Type 2 diabetes mellitus without complications; E78.00 Pure hypercholesterolemia, unspecified; F41.9 Anxiety disorder, unspecified; I10 Essential (primary) hypertension; M81.0 Age-related osteoporosis without current pathological fracture; Z79.82 Long term (current) use of aspirin

== ENCOUNTER 2018-09-25 12:56 | Observation (INO) | payer MEDICARE, MEDICAID ==
[2018-09-25 12:57] VITALS: BMI 23.8
--- NOTE | 2018-09-25 13:49 | ED PDOC ---
HPI: Hypertension/Hypotension Time Seen by Provider: 09/25/18 13:02 Chief Complaint (Nursing): High Blood Pressure Chief Complaint (Provider): Headache, Abdominal Pain History Per: Patient, [employer] ([id number]) History/Exam Limitations: no limitations Onset/Duration Of Symptoms: Days Associated Symptoms: Chest Pain, Headache Additional Complaint(s): 83 year old female with a past medical history of anxiety, hypertension, hypercholesterolemia, and osteoporosis who is presenting to the ED for evaluation of headache, dizziness, abdominal pain, generalized weakness, and chest pain ongoing for a week. Patient states that symptoms have been ongoing for 5-6 days and denies any other medical complaints at this time. PMD: Dr. Pritchett Past Medical History Reviewed: Historical Data, Nursing Documentation, Vital Signs Vital Signs: Last Vital Signs Temp 98.4 F 09/25/18 13:08 Pulse Resp 89 H 09/25/18 13:08 BP 155/89 H 09/25/18 13:08 Pulse Ox 18 L 09/25/18 13:08 - Medical History PMH: Anxiety, Diabetes, HTN, Hypercholesterolemia, Hyperlipidemia, Osteoporosis Denies: Anemia, Chronic Kidney Disease - Surgical History Other surgeries: Tubal Ligation - Family History Family History: States: Unknown Family Hx, Hypertension - Social History Current smoker - smoking cessation education provided: No Alcohol: None Drugs: Denies - Immunization History Hx Tetanus Toxoid Vaccination: No Hx Influenza Vaccination: Yes Hx Pneumococcal Vaccination: No - Home Medications Home Medications: Ambulatory Orders Medication Instructions Recorded Alprazolam [Xanax] 1 mg PO PRN PRN 10/10/15 Calcium Carbonate/Vitamin D3 1 tab PO DAILY 10/10/15 [Calcium 600-Vit D3 200 Tablet] Ibandronate Sodium 150 mg PO Q30D 10/10/15 Valsartan [Diovan] 160 mg PO DAILY 10/10/15 amLODIPine [Norvasc] 5 mg PO DAILY 08/17/16 Aspirin [Ecotrin] 81 mg PO DAILY 09/08/16 Bepotastine Besilate [Bepreve] 1 drop OU DAILY 09/08/16 traMADol [Ultram] 50 mg PO TID PRN 09/08/16 Pantoprazole [Protonix EC Tab] 40 mg PO DAILY #30 ect 09/11/16 Alendronate [Fosamax] 70 mg PO DAILY 04/01/18 Cefdinir [Omnicef] 300 mg PO BID #14 cap 09/26/18 - Allergies Allergies/Adverse Reactions: Allergies Allergy/AdvReac Type Severity Reaction Status Date / Time shrimp Allergy VOMITING Verified 09/25/18 13:07 Review of Systems ROS Statement: Except As Marked, All Systems Reviewed And Found Negative Constitutional: Positive for: Weakness Cardiovascular: Positive for: Chest Pain Gastrointestinal: Positive for: Abdominal Pain Neurological: Positive for: Headache, Dizziness Physical Exam - Reviewed Nursing Documentation Reviewed: Yes Vital Signs Reviewed: Yes - Physical Exam Appears: Positive for: Non-toxic, No Acute Distress Head Exam: Positive for: ATRAUMATIC, NORMAL INSPECTION, NORMOCEPHALIC Skin: Positive for: Normal Color, Warm, DRY Eye Exam: Positive for: EOMI, Normal appearance, PERRL ENT: Positive for: Normal ENT Inspection Neck: Positive for: Normal, Painless ROM Cardiovascular/Chest: Positive for: Regular Rate, Rhythm. Negative for: Murmur Respiratory: Positive for: Normal Breath Sounds. Negative for: Respiratory Distress Gastrointestinal/Abdominal: Positive for: Soft, Tenderness (minimal periumbilical tenderness). Negative for: Distended, Guarding, Rebound Extremity: Positive for: Normal ROM. Negative for: Deformity, Swelling Neurological/Psych: Positive for: Awake, Alert, Normal Tone, Oriented. Negative for: Motor/Sensory Deficits - Laboratory Results Result Diagrams: 09/26/18 05:26 09/26/18 05:26 - ECG O2 Sat by Pulse Oximetry: 18 Medical Decision Making Medical Decision Making: Time: 13:34 Plan: --CT Abd/Pelvis --CT Head --EKG --CMP --Lipase --Troponin --ED Urine Dipstick --CBC --Coags --CXR --Urinalysis Accession No. : [id number] Patient Name / ID : TAMIKA Hay / [id number] Exam Date : 09/25/2018 13:41:29 ( Approved ) Study Comment : Sex / Age : F / 83Y Creator : Luis Parmar MD Dictator : Luis Parmar MD [employer] Lead : Bankruptcy Paralegal : Luis Parmar MD Approver2 : Report Date : 09/25/2018 15:21:37 My Comment : Date of service: 09/25/2018 HISTORY: CP COMPARISON: Chest radiographs 10/31/2017. TECHNIQUE: Chest PA and lateral views FINDINGS: LUNGS: Left basilar fibrosis, minimal. No acute consolidation bilaterally. PLEURA: No significant pleural effusion identified. No pneumothorax apparent. CARDIOVASCULAR: Calcific atherosclerotic changes are seen related to the thoracic aorta. Normal cardiac size. No pulmonary vascular congestion. OSSEOUS STRUCTURES: No significant abnormalities. VISUALIZED UPPER ABDOMEN: Normal. OTHER FINDINGS: None. IMPRESSION: Stable limited fibrosis left base. No interval acute cardiopulmonary disease appreciable. Accession No. : [id number] Patient Name / ID : TAMIKA SCHAEFER E / [id number] Exam Date : 09/25/2018 14:04:49 ( Approved ) Study Comment : Sex / Age : F / 83Y Creator : Luis Parmar MD Dictator : Luis Parmar MD [employer] Lead : Bankruptcy Paralegal : Luis Parmar MD Approver2 : Report Date : 09/25/2018 14:24:04 My Comment : Date of service: 09/25/2018 PROCEDURE: CT HEAD WITHOUT CONTRAST. HISTORY: UBRGESS COMPARISON: None available. TECHNIQUE: Axial computed tomography images were obtained through the head/brain without intravenous contrast. Radiation dose: Total exam DLP = 684.47 mGy-cm. This CT exam was performed using one or more of the following dose reduction techniques: Automated exposure control, adjustment of the mA and/or kV according to patient size, and/or use of iterative reconstruction technique. FINDINGS: HEMORRHAGE: No intracranial hemorrhage. BRAIN: Good corticomedullary differentiation is seen. Proportional, diffuse expansion of the ventriculosulcal and cisternal spaces is appreciated with white matter lucency compatible with diffuse cerebral atrophy and chronic microangiopathy. No suspicious extra-axial fluid collection is identified and the midline brain anatomy appears grossly nonfocal as imaged. There is no mass effect throughout. VENTRICLES: Unremarkable. No hydrocephalus. CALVARIUM: Unremarkable. PARANASAL SINUSES: Unremarkable as visualized. No significant inflammatory changes. MASTOID AIR CELLS: Unremarkable as visualized. No inflammatory changes. OTHER FINDINGS: None. IMPRESSION: Age-appropriate age related neuro degenerative change are identified without definitive acute findings throughout the brain. No prior comparison available. Accession No. : [id number] Patient Name / ID : TAMIKA SCHAEFER E / [id number] Exam Date : 09/25/2018 15:47:04 ( Approved ) Study Comment : Sex / Age : F / 83Y Creator : Ceasar Teran MD Dictator : Ceasar Teran MD [employer] Lead : Bankruptcy Paralegal : Ceasar Teran MD Approver2 : Report Date : 09/25/2018 16:26:59 My Comment : Date of service: 09/25/2018 PROCEDURE: CT Abdomen and Pelvis with contrast HISTORY: Periumbilical pain COMPARISON: 01/31/2018. CT abdomen and pelvis. TECHNIQUE: Intravenous contrast dose: 90 cc Omnipaque 300. Radiation dose: Total exam DLP = 6357.07 mGy-cm. This CT exam was performed using one or more of the following dose reduction techniques: Automated exposure control, adjustment of the mA and/or kV according to patient size, and/or use of iterative reconstruction technique. FINDINGS: LOWER THORAX: Prominent bronchi, parabronchial thickening confined to the left lower lobe with associated linear scarring. Unchanged compared to the prior study. LIVER: Unremarkable. No gross lesion or ductal dilatation. GALLBLADDER AND BILE DUCTS: Unremarkable. PANCREAS: Unremarkable. No gross lesion or ductal dilatation. SPLEEN: Unremarkable. ADRENALS: Unremarkable. No mass. KIDNEYS AND URETERS: Unremarkable. No hydronephrosis. No solid mass. Able exophytic cyst lower pole right kidney. VASCULATURE: Atherosclerotic calcification and mural plaque present. Findings are seen throughout the aorta. No aortic aneurysm. BOWEL: Mildly dilated proximal small bowel. Early/incomplete obstruction should be considered. Alternatively this may represent limited enteritis. Diverticulosis without an acute inflammatory component or other associated patho logic process. This is particularly severe in the descending colon. APPENDIX: A normal appendix is visualized in it's entirety. PERITONEUM: Unremarkable. No free fluid. No free air. LYMPH NODES: Unremarkable. No enlarged lymph nodes. BLADDER: Unremarkable. REPRODUCTIVE: Solid mass left adnexa 2.5 x 3 cm. No change. Calcified uterine fibroids. BONES: No acute fracture. OTHER FINDINGS: None. IMPRESSION: Mildly dilated proximal small bowel. Early/incomplete small bowel obstruction should be considered. Enteritis can also assume this appearance. These are new findings compared to the prior CT scan 01/31/2018. Additional benign and/or incidental findings described above. Pt evaluated by resident services director in ED. Scribe Attestation: Documented by Asya Guerrero, acting as a scribe for Dayna Davis MD. Provider Scribe Attestation: All medical record entries made by the Scribe were at my direction and personally dictated by me. I have reviewed the chart and agree that the record accurately reflects my personal performance of the history, physical exam, medical decision making, and the department course for this patient. I have also personally directed, reviewed, and agree with the discharge instructions and disposition. Disposition - Clinical Impression Clinical Impression: Chest pain, SBO (small bowel obstruction) - Patient ED Disposition Is Patient to be Admitted: Yes - Disposition Disposition Time: 17:00 Condition: STABLE - Pt Status Changed To: Hospital Disposition Of: Inpatient - Admit Certification Admit to Inpatient:: After my assessment, the patient will require hospitalization for at least two midnights. This is because of the severity of symptoms shown, intensity of services needed, and/or the medical risk in this patient being treated as an outpatient. - POA Present On Arrival: None
[2018-09-25 14:13] LABS: BASO % 0.6 % (0.0-2.0); EOS # 0.1 K/uL (0.0-0.7); EOS % 0.7 % (0.0-4.0); HEMOGLOBIN 12.2 g/dL (12.0-16.0); LYMPH # 1.6 K/uL (1.0-4.3); MEAN CELL VOLUME 84.6 fl (81.0-99.0); MEAN CORPUSCULAR HEMOGLOBIN 27.4 pg (27.0-31.0); MEAN CORPUSCULAR HGB CONC 32.4 g/dL (33.0-37.0); MEAN PLATELET VOLUME 9.1 fl (7.2-11.7); MONO # 0.6 K/uL (0.0-0.8); NEUT # 5.1 K/uL (1.8-7.0); NEUT % 68.7 % (50.0-75.0); NRBC % 0.1 % (0.0-0.0); RBC 4.44 Mil/uL (3.80-5.20); RED CELL DISTRIBUTION WIDTH 15.8 % (11.5-14.5); WHITE BLOOD COUNT 7.5 K/uL (4.8-10.8)
[2018-09-25 14:17] LABS: INR 1.1; PROTHROMBIN TIME 12.7 Seconds (9.8-13.1)
[2018-09-25 14:20] LABS: PARTIAL THROMBOPLASTIN TIME 32.6 Seconds (25.6-37.1)
--- NOTE | 2018-09-25 14:27 | CT ---
Date of service: 09/25/2018 PROCEDURE: CT HEAD WITHOUT CONTRAST. HISTORY: BURGESS COMPARISON: None available. TECHNIQUE: Axial computed tomography images were obtained through the head/brain without intravenous contrast. Radiation dose: Total exam DLP = 684.47 mGy-cm. This CT exam was performed using one or more of the following dose reduction techniques: Automated exposure control, adjustment of the mA and/or kV according to patient size, and/or use of iterative reconstruction technique. FINDINGS: HEMORRHAGE: No intracranial hemorrhage. BRAIN: Good corticomedullary differentiation is seen. Proportional, diffuse expansion of the ventriculosulcal and cisternal spaces is appreciated with white matter lucency compatible with diffuse cerebral atrophy and chronic microangiopathy. No suspicious extra-axial fluid collection is identified and the midline brain anatomy appears grossly nonfocal as imaged. There is no mass effect throughout. VENTRICLES: Unremarkable. No hydrocephalus. CALVARIUM: Unremarkable. PARANASAL SINUSES: Unremarkable as visualized. No significant inflammatory changes. MASTOID AIR CELLS: Unremarkable as visualized. No inflammatory changes. OTHER FINDINGS: None. IMPRESSION: Age-appropriate age related neuro degenerative change are identified without definitive acute findings throughout the brain. No prior comparison available.
[2018-09-25 14:31] LABS: SQUAMOUS EPITHIAL 6 /hpf (0-5); URINE AMORPHOUS SEDIMENT RARE /ul (<OCC); URINE BACTERIA RARE (<OCC); URINE BILIRUBIN NEGATIVE (NEGATIVE); URINE BLOOD NEGATIVE (NEGATIVE); URINE CLARITY CLOUDY (Clear); URINE COLOR AMBER (YELLOW); URINE GLUCOSE (UA) NEG (NEGATIVE); URINE LEUKOCYTE ESTERASE MOD Leu/uL (Negative); URINE PROTEIN 30 mg/dL (NEGATIVE); URINE UROBILINOGEN 0.2-1.0 mg/dL (0.2-1.0)
[2018-09-25 14:32] LABS: ALB/GLOB RATIO 1.2 (1.0-2.1); ALBUMIN 4.5 g/dL (3.5-5.0); ALT/SGPT 16 U/L (9-52); AST/SGOT 28 U/L (14-36); BLOOD UREA NITROGEN 14 mg/dl (7-17); CALCIUM 10.7 mg/dL (8.4-10.2); GFR NON-AFRICAN AMERICAN > 60; LIPASE 131 U/L (23-300)
--- NOTE | 2018-09-25 15:24 | RAD ---
Date of service: 09/25/2018 HISTORY: CP COMPARISON: Chest radiographs 10/31/2017. TECHNIQUE: Chest PA and lateral views FINDINGS: LUNGS: Left basilar fibrosis, minimal. No acute consolidation bilaterally. PLEURA: No significant pleural effusion identified. No pneumothorax apparent. CARDIOVASCULAR: Calcific atherosclerotic changes are seen related to the thoracic aorta. Normal cardiac size. No pulmonary vascular congestion. OSSEOUS STRUCTURES: No significant abnormalities. VISUALIZED UPPER ABDOMEN: Normal. OTHER FINDINGS: None. IMPRESSION: Stable limited fibrosis left base. No interval acute cardiopulmonary disease appreciable.
[2018-09-25] MEDS ORDERED: Sodium Chloride 0.9% 50 ML IV ONE (15:44)
[2018-09-25] MEDS ORDERED: Iohexol 300 100 ML IJ ONE (15:44)
--- NOTE | 2018-09-25 16:30 | CT ---
Date of service: 09/25/2018 PROCEDURE: CT Abdomen and Pelvis with contrast HISTORY: Periumbilical pain COMPARISON: 01/31/2018. CT abdomen and pelvis. TECHNIQUE: Intravenous contrast dose: 90 cc Omnipaque 300. Radiation dose: Total exam DLP = 6357.07 mGy-cm. This CT exam was performed using one or more of the following dose reduction techniques: Automated exposure control, adjustment of the mA and/or kV according to patient size, and/or use of iterative reconstruction technique. FINDINGS: LOWER THORAX: Prominent bronchi, parabronchial thickening confined to the left lower lobe with associated linear scarring. Unchanged compared to the prior study. LIVER: Unremarkable. No gross lesion or ductal dilatation. GALLBLADDER AND BILE DUCTS: Unremarkable. PANCREAS: Unremarkable. No gross lesion or ductal dilatation. SPLEEN: Unremarkable. ADRENALS: Unremarkable. No mass. KIDNEYS AND URETERS: Unremarkable. No hydronephrosis. No solid mass. Able exophytic cyst lower pole right kidney. VASCULATURE: Atherosclerotic calcification and mural plaque present. Findings are seen throughout the aorta. No aortic aneurysm. BOWEL: Mildly dilated proximal small bowel. Early/incomplete obstruction should be considered. Alternatively this may represent limited enteritis. Diverticulosis without an acute inflammatory component or other associated pathologic process. This is particularly severe in the descending colon. APPENDIX: A normal appendix is visualized in it's entirety. PERITONEUM: Unremarkable. No free fluid. No free air. LYMPH NODES: Unremarkable. No enlarged lymph nodes. BLADDER: Unremarkable. REPRODUCTIVE: Solid mass left adnexa 2.5 x 3 cm. No change. Calcified uterine fibroids. BONES: No acute fracture. OTHER FINDINGS: None. IMPRESSION: Mildly dilated proximal small bowel. Early/incomplete small bowel obstruction should be considered. Enteritis can also assume this appearance. These are new findings compared to the prior CT scan 01/31/2018. Additional benign and/or incidental findings described above.
--- NOTE | 2018-09-25 18:21 | CP.PCM.HP ---
<MonteiroLucia nash - Last Filed: 09/25/18 19:20> History of Present Illness - History of Present Illness History of Present Illness: 83 yo female patient with PMH of HTN and HLD present to the ED c/o chest pain/discomfort since yesterday. No inciting event. Associated nausea and abdominal pain. She endorses calling his PCP and was advised to come to ED for further evaluation. She reports generalized weakness ongoing for 5-6 days. Otherwise she denies sob, palpitations, fever, arm or neck pain, vomiting, diarrhea, no urinary sx or changes in BM. 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 Present on Admission - Present on Admission Any Indicators Present on Admission: No Review of Systems - Review of Systems All systems: reviewed and no additional remarkable complaints except (HPI) Past Patient History - Past Medical History & Family History Past Medical History?: Yes - Past Social History Alcohol: None Drugs: Denies - CARDIAC Hx Hypercholesterolemia: Yes Hx Hypertension: Yes - PULMONARY Hx Respiratory Disorders: No - NEUROLOGICAL Hx Neurological Disorder: No - HEENT Hx HEENT Problems: No - RENAL Hx Chronic Kidney Disease: No - ENDOCRINE/METABOLIC Hx Endocrine Disorders: Yes Hx Diabetes Mellitus Type 2: Yes - HEMATOLOGICAL/ONCOLOGICAL Hx Anemia: No - INTEGUMENTARY Hx Dermatological Problems: No - MUSCULOSKELETAL/RHEUMATOLOGICAL Hx Osteoporosis: Yes - GASTROINTESTINAL Hx Gastrointestinal Disorders: Yes Other/Comment: rectal bleed on 09/04/16 - GENITOURINARY/GYNECOLOGICAL Hx Genitourinary Disorders: No - PSYCHIATRIC Hx Anxiety: Yes - SURGICAL HISTORY Hx Surgeries: Yes Hx Tubal Ligation: Yes Other/Comment: nasal surgery years ago - ANESTHESIA Hx Anesthesia: No Hx Anesthesia Reactions: No Meds Allergies/Adverse Reactions: Allergies Allergy/AdvReac Type Severity Reaction Status Date / Time shrimp Allergy VOMITING Verified 09/25/18 13:07 Physical Exam - Constitutional Appears: No Acute Distress - Head Exam Head Exam: NORMAL INSPECTION - Eye Exam Eye Exam: EOMI, PERRL - ENT Exam ENT Exam: Mucous Membranes Moist - Neck Exam Neck exam: Positive for: Full Rom. Negative for: Lymphadenopathy, Tenderness, Thyromegaly - Respiratory Exam Respiratory Exam: Clear to Auscultation Bilateral, NORMAL BREATHING PATTERN. absent: Rales, Wheezes - Cardiovascular Exam Cardiovascular Exam: REGULAR RHYTHM, +S1, +S2. absent: Tachycardia - GI/Abdominal Exam GI & Abdominal Exam: Normal Bowel Sounds, Soft. absent: Distended, Tenderness - Extremities Exam Extremities exam: Negative for: calf tenderness, pedal edema - Neurological Exam Neurological exam: Alert, CN II-XII Intact, Oriented x3 - Psychiatric Exam Psychiatric exam: Normal Affect - Skin Skin Exam: Dry, Normal Color, Warm Results - Vital Signs Recent Vital Signs: Last Vital Signs Temp 98.1 F 09/25/18 14:41 Pulse 78 09/25/18 14:59 Resp 17 09/25/18 14:41 BP 101/64 09/25/18 14:41 Pulse Ox 18 L 09/25/18 15:50 - Labs Result Diagrams: 09/25/18 12:00 09/25/18 12:00 Labs: Laboratory Results - last 24 hr 09/25/18 09/25/18 09/25/18 12:00 12:00 12:00 WBC 7.5 RBC 4.44 Hgb 12.2 Hct 37.6 MCV 84.6 MCH 27.4 MCHC 32.4 L RDW 15.8 H Plt Count 314 MPV 9.1 Neut % (Auto) 68.7 Lymph % (Auto) 22.0 Ple[place] % (Auto) 8.0 Eos % (Auto) 0.7 Baso % (Auto) 0.6 Neut # (Auto) 5.1 Lymph # (Auto) 1.6 [place] # (Auto) 0.6 Eos # (Auto) 0.1 Baso # (Auto) 0.0 PT 12.7 INR 1.1 APTT 32.6 Sodium 141 Potassium 4.1 Chloride 101 Carbon Dioxide 30 Anion Gap 14 BUN 14 Creatinine 0.8 Est GFR ( Amer) > 60 Est GFR (Non-Af Amer) > 60 Random Glucose 134 H Calcium 10.7 H Total Bilirubin 0.5 AST 28 ALT 16 Alkaline Phosphatase 79 Troponin I < 0.0120 Total Protein 8.3 H Albumin 4.5 Globulin 3.8 Albumin/Globulin Ratio 1.2 Lipase 131 Urine Color Urine Clarity Urine pH Ur Specific Cunningham Urine Protein Urine Glucose (UA) Urine Ketones Urine Blood Urine Nitrate Urine Bilirubin Urine Urobilinogen Ur Leukocyte Esterase Urine RBC (Auto) Urine Microscopic WBC Ur Squamous Epith Cells Amorphous Sediment Urine Bacteria Hyaline Casts 09/25/18 13:46 WBC RBC Hgb Hct MCV MCH MCHC RDW Plt Count MPV Neut % (Auto) Lymph % (Auto) Pleas[place] % (Auto) Eos % (Auto) Baso % (Auto) Neut # (Auto) Lymph # (Auto) [place] # (Auto) Eos # (Auto) Baso # (Auto) PT INR APTT Sodium Potassium Chloride Carbon Dioxide Anion Gap BUN Creatinine Est GFR ( Amer) Est GFR (Non-Af Amer) Random Glucose Calcium Total Bilirubin AST ALT Alkaline Phosphatase Troponin I Total Protein Albumin Globulin Albumin/Globulin Ratio Lipase Urine Color Mary Carmen Urine Clarity Cloudy Urine pH 7.0 Ur Specific Cunningham 1.018 Urine Protein 30 Urine Glucose (UA) Neg Urine Ketones Negative Urine Blood Negative Urine Nitrate Negative Urine Bilirubin Negative Urine Urobilinogen 0.2-1.0 Ur Leukocyte Esterase Mod Urine RBC (Auto) 3 Urine Microscopic WBC 5 Ur Squamous Epith Cells 6 H Amorphous Sediment Rare H Urine Bacteria Rare Hyaline Casts 3-5 H Assessment & Plan - Assessment and Plan (Free Text) Assessment: 83 year old female with a past medical history of anxiety, hypertension, HLD admitted due to chest pain and UTI. Plan: Chest pain, r/o ACS - admit to tele - continue case monitor - VSS - troponin x1 negative, f/u trending - EKG: NSR, occasional PVC, no acute changes - ASA daily - labs in am - EKG in am - resume home meds UTI - Urine mod esterase - afebrile, wbc wnl - ceftriaxone IV daily - f/u urine cx HTN - controlled - continue home meds - monitor vitals HLD - not on statin - lipid panel in am Case discussed with Dr Zarate <Bebeto Zarate - Last Filed: 09/26/18 09:25> Results - Vital Signs Recent Vital Signs: Last Vital Signs Temp 98.0 F 09/26/18 07:44 Pulse 75 04/27/19 07:44 Resp 20 09/26/18 07:44 BP 139/66 09/26/18 07:44 Pulse Ox 96 09/26/18 07:44 - Labs Result Diagrams: 09/26/18 05:26 09/26/18 05:26 Labs: Laboratory Results - last 24 hr 09/25/18 09/25/18 09/25/18 12:00 12:00 12:00 WBC 7.5 RBC 4.44 Hgb 12.2 Hct 37.6 MCV 84.6 MCH 27.4 MCHC 32.4 L RDW 15.8 H Plt Count 314 MPV 9.1 Neut % (Auto) 68.7 Lymph % (Auto) 22.0 Pleas[place] % (Auto) 8.0 Eos % (Auto) 0.7 Baso % (Auto) 0.6 Neut # (Auto) 5.1 Lymph # (Auto) 1.6 [place] # (Auto) 0.6 Eos # (Auto) 0.1 Baso # (Auto) 0.0 PT 12.7 INR 1.1 APTT 32.6 Sodium 141 Potassium 4.1 Chloride 101 Carbon Dioxide 30 Anion Gap 14 BUN 14 Creatinine 0.8 Est GFR ( Amer) > 60 Est GFR (Non-Af Amer) > 60 Random Glucose 134 H Calcium 10.7 H Total Bilirubin 0.5 AST 28 ALT 16 Alkaline Phosphatase 79 Troponin I < 0.0120 Total Protein 8.3 H Albumin 4.5 Globulin 3.8 Albumin/Globulin Ratio 1.2 Triglycerides Cholesterol LDL Cholesterol Direct HDL Cholesterol Lipase 131 Urine Color Urine Clarity Urine pH Ur Specific Cunningham Urine Protein Urine Glucose (UA) Urine Ketones Urine Blood Urine Nitrate Urine Bilirubin Urine Urobilinogen Ur Leukocyte Esterase Urine RBC (Auto) Urine Microscopic WBC Ur Squamous Epith Cells Amorphous Sediment Urine Bacteria Hyaline Casts 09/25/18 09/25/18 09/26/18 13:46 20:57 05:26 WBC 6.6 RBC 4.52 Hgb 12.2 Hct 38.1 MCV 84.2 MCH 27.1 MCHC 32.2 L RDW 15.5 H Plt Count 295 MPV 8.9 Neut % (Auto) 66.8 Lymph % (Auto) 21.8 [place] % (Auto) 8.4 Eos % (Auto) 2.1 Baso % (Auto) 0.9 Neut # (Auto) 4.4 Lymph # (Auto) 1.4 [place] # (Auto) 0.6 Eos # (Auto) 0.1 Baso # (Auto) 0.1 PT INR APTT Sodium Potassium Chloride Carbon Dioxide Anion Gap BUN Creatinine Est GFR ( Amer) Est GFR (Non-Af Amer) Random Glucose Calcium Total Bilirubin AST ALT Alkaline Phosphatase Troponin I < 0.0120 Total Protein Albumin Globulin Albumin/Globulin Ratio Triglycerides Cholesterol LDL Cholesterol Direct HDL Cholesterol Lipase Urine Color Mray Carmen Urine Clarity Cloudy Urine pH 7.0 Ur Specific Cunningham 1.018 Urine Protein 30 Urine Glucose (UA) Neg Urine Ketones Negative Urine Blood Negative Urine Nitrate Negative Urine Bilirubin Negative Urine Urobilinogen 0.2-1.0 Ur Leukocyte Esterase Mod Urine RBC (Auto) 3 Urine Microscopic WBC 5 Ur Squamous Epith Cells 6 H Amorphous Sediment Rare H Urine Bacteria Rare Hyaline Casts 3-5 H 09/26/18 05:26 WBC RBC Hgb Hct MCV MCH MCHC RDW Plt Count MPV Neut % (Auto) Lymph % (Auto) [place] % (Auto) Eos % (Auto) Baso % (Auto) Neut # (Auto) Lymph # (Auto) [place] # (Auto) Eos # (Auto) Baso # (Auto) PT INR APTT Sodium 142 Potassium 4.1 Chloride 103 Carbon Dioxide 31 H Anion Gap 12 BUN 10 Creatinine 0.7 Est GFR ( Amer) > 60 Est GFR (Non-Af Amer) > 60 Random Glucose 115 H Calcium 9.7 Total Bilirubin AST ALT Alkaline Phosphatase Troponin I < 0.0120 Total Protein Albumin Globulin Albumin/Globulin Ratio Triglycerides 101 Cholesterol 235 H LDL Cholesterol Direct 159 H HDL Cholesterol 47 Lipase Urine Color Urine Clarity Urine pH Ur Specific Cunningham Urine Protein Urine Glucose (UA) Urine Ketones Urine Blood Urine Nitrate Urine Bilirubin Urine Urobilinogen Ur Leukocyte Esterase Urine RBC (Auto) Urine Microscopic WBC Ur Squamous Epith Cells Amorphous Sediment Urine Bacteria Hyaline Casts Attending/Attestation - Attestation I have personally seen and examined this patient.: Yes I have fully participated in the care of the patient.: Yes I have reviewed all pertinent clinical information: Yes Notes (Text): 09/26/18 09:25 Patient seen and examined with resident. Case discussed and agreed with assessment and plan of management.
--- NOTE | 2018-09-25 19:44 | CP.PCM.CON ---
History of Present Illness - History of Present Illness History of Present Illness: General Surgery Consult: Dr Vieyra Pt is a 83F with PMH of HTN, HLD, diabetes, osteoporosis and a recent GI bleed (09/08/16). Pt sent to the ED by PCP for c/o chest pain/discomfort since yesterday. She does report associated epigastric pain and nausea, but she denies any emesis. She has been tolerating PO intake, though eating does worsen her pain especially after coffee. Otherwise she denies sob, palpitations, fevers or chills. She has been having regular bowel movements. No dark or tarry stools, no diarrhea. Surgery was consulted due to CT read of early SBO. Pt is already on diet and anti-coagulation. Protonix have been ordered as well. PMD: Dr Pritchett PMHx: Anxiety, Diabetes, HTN, Hypercholesterolemia, Hyperlipidemia, Osteoporosis, GI bleed (09/08/16) PSHx: bilateral tubal ligation and nasal surgery Allergies: NKDA, Shrimp Social Hx: denies tobacco, denies ETOH, denies drugs Review of Systems - Review of Systems All systems: reviewed and no additional remarkable complaints except (as per hpi) Past Patient History - Past Medical History & Family History Past Medical History?: Yes - Past Social History Alcohol: None Drugs: Denies - CARDIAC Hx Hypercholesterolemia: Yes Hx Hypertension: Yes - PULMONARY Hx Respiratory Disorders: No - NEUROLOGICAL Hx Neurological Disorder: No - HEENT Hx HEENT Problems: No - RENAL Hx Chronic Kidney Disease: No - ENDOCRINE/METABOLIC Hx Endocrine Disorders: Yes Hx Diabetes Mellitus Type 2: Yes - HEMATOLOGICAL/ONCOLOGICAL Hx Anemia: No - INTEGUMENTARY Hx Dermatological Problems: No - MUSCULOSKELETAL/RHEUMATOLOGICAL Hx Osteoporosis: Yes - GASTROINTESTINAL Hx Gastrointestinal Disorders: Yes Other/Comment: rectal bleed on 09/04/16 - GENITOURINARY/GYNECOLOGICAL Hx Genitourinary Disorders: No - PSYCHIATRIC Hx Anxiety: Yes - SURGICAL HISTORY Hx Surgeries: Yes Hx Tubal Ligation: Yes Other/Comment: nasal surgery years ago - ANESTHESIA Hx Anesthesia: No Hx Anesthesia Reactions: No Meds Allergies/Adverse Reactions: Allergies Allergy/AdvReac Type Severity Reaction Status Date / Time shrimp Allergy VOMITING Verified 09/25/18 13:07 - Medications Medications: Current Medications Acetaminophen (Tylenol 325mg Tab) 650 mg PO Q6 PRN PRN Reason: Pain, Mild (1-3) Alendronate Sodium (Fosamax) 70 mg PO DAILY [facility] Alprazolam (Xanax) 1 mg PO PRN PRN PRN Reason: Anxiety Amlodipine Besylate (Norvasc) 5 mg PO DAILY [facility] Aspirin (Aspirin Chewable) 81 mg PO DAILY [facility] Calcium/Vitamin D (Oyster Shell Calcium/Vitamin D 500 Mg-200 Iu) 1 tab PO DAILY [facility]ANEE Enoxaparin Sodium (Lovenox) 40 mg SC DAILY JANEE; Protocol Home Med (Bepotastine Besilate [Bepreve]) 1 drop OU DAILY JANEE Home Med (Ibandronate Sodium [Ibandronate Sodium]) 150 mg PO Q30D [facility] Ceftriaxone Sodium 1 gm/ (Sodium Chloride) 100 mls @ 100 mls/hr IVPB DAILY JANEE; Protocol Losartan Potassium (Cozaar) 100 mg PO DAILY JANEE Pantoprazole Sodium (Protonix Ec Tab) 40 mg PO DAILY JANEE Physical Exam - Constitutional Appears: Non-toxic, No Acute Distress - Head Exam Head Exam: NORMAL INSPECTION - Eye Exam Eye Exam: Normal appearance - ENT Exam ENT Exam: Mucous Membranes Moist - Respiratory Exam Respiratory Exam: absent: Respiratory Distress - Cardiovascular Exam Cardiovascular Exam: REGULAR RHYTHM - GI/Abdominal Exam GI & Abdominal Exam: Soft. absent: Distended, Tenderness - Rectal Exam Rectal Exam: Deferred - Extremities Exam Extremities exam: Negative for: pedal edema - Back Exam Back exam: NORMAL INSPECTION. absent: CVA tenderness (L), CVA tenderness (R), vertebral tenderness - Neurological Exam Neurological exam: Alert, Oriented x3 - Psychiatric Exam Psychiatric exam: Normal Affect - Skin Skin Exam: Normal Color, Warm Results - Vital Signs Recent Vital Signs: Last Vital Signs Temp 98.2 F 09/25/18 18:33 Pulse 73 09/25/18 19:16 Resp 16 09/25/18 19:16 BP 144/77 09/25/18 18:33 Pulse Ox 98 09/25/18 19:16 - Labs Result Diagrams: 09/25/18 12:00 09/25/18 12:00 Labs: Laboratory Results - last 24 hr 09/25/18 09/25/18 09/25/18 12:00 12:00 12:00 WBC 7.5 RBC 4.44 Hgb 12.2 Hct 37.6 MCV 84.6 MCH 27.4 MCHC 32.4 L RDW 15.8 H Plt Count 314 MPV 9.1 Neut % (Auto) 68.7 Lymph % (Auto) 22.0 [place] % (Auto) 8.0 Eos % (Auto) 0.7 Baso % (Auto) 0.6 Neut # (Auto) 5.1 Lymph # (Auto) 1.6 [place] # (Auto) 0.6 Eos # (Auto) 0.1 Baso # (Auto) 0.0 PT 12.7 INR 1.1 APTT 32.6 Sodium 141 Potassium 4.1 Chloride 101 Carbon Dioxide 30 Anion Gap 14 BUN 14 Creatinine 0.8 Est GFR ( Amer) > 60 Est GFR (Non-Af Amer) > 60 Random Glucose 134 H Calcium 10.7 H Total Bilirubin 0.5 AST 28 ALT 16 Alkaline Phosphatase 79 Troponin I < 0.0120 Total Protein 8.3 H Albumin 4.5 Globulin 3.8 Albumin/Globulin Ratio 1.2 Lipase 131 Urine Color Urine Clarity Urine pH Ur Specific [place] Urine Protein Urine Glucose (UA) Urine Ketones Urine Blood Urine Nitrate Urine Bilirubin Urine Urobilinogen Ur Leukocyte Esterase Urine RBC (Auto) Urine Microscopic WBC Ur Squamous Epith Cells Amorphous Sediment Urine Bacteria Hyaline Casts 09/25/18 13:46 WBC RBC Hgb Hct MCV MCH MCHC RDW Plt Count MPV Neut % (Auto) Lymph % (Auto) [place] % (Auto) Eos % (Auto) Baso % (Auto) Neut # (Auto) Lymph # (Auto) [place] # (Auto) Eos # (Auto) Baso # (Auto) PT INR APTT Sodium Potassium Chloride Carbon Dioxide Anion Gap BUN Creatinine Est GFR ( Amer) Est GFR (Non-Af Amer) Random Glucose Calcium Total Bilirubin AST ALT Alkaline Phosphatase Troponin I Total Protein Albumin Globulin Albumin/Globulin Ratio Lipase Urine Color [place] Urine Clarity Cloudy Urine pH 7.0 Ur Specific [place] 1.018 Urine Protein 30 Urine Glucose (UA) Neg Urine Ketones Negative Urine Blood Negative Urine Nitrate Negative Urine Bilirubin Negative Urine Urobilinogen 0.2-1.0 Ur Leukocyte Esterase Mod Urine RBC (Auto) 3 Urine Microscopic WBC 5 Ur Squamous Epith Cells 6 H Amorphous Sediment Rare H Urine Bacteria Rare Hyaline Casts 3-5 H Assessment & Plan - Assessment and Plan (Free Text) Assessment: 83F admitted for work-up of chest pain; surgery consulted for early SBO on CT scan Plan: pt has no obstructive symptoms abdomen is soft, non-tender and benign tolerating diet and having bowelmovements CT findings likely secondary to gastritis cont protonix, can consider GI consult for possible EGD and H Pylori biopsy no surgical intervention necessary please reconsult if needed d/w Dr Jarrell Rebolledo, PGY4
[2018-09-25] MEDS ORDERED: cefTRIAXone (Rocephin) 1 gm Inj ONE (20:13)
[2018-09-26 06:13] LABS: BASO # 0.1 K/uL (0.0-0.2); BASO % 0.9 % (0.0-2.0); EOS # 0.1 K/uL (0.0-0.7); EOS % 2.1 % (0.0-4.0); HEMOGLOBIN 12.2 g/dL (12.0-16.0); LYMPH # 1.4 K/uL (1.0-4.3); LYMPH % 21.8 % (20.0-40.0); MEAN CELL VOLUME 84.2 fl (81.0-99.0); MEAN CORPUSCULAR HEMOGLOBIN 27.1 pg (27.0-31.0); MEAN CORPUSCULAR HGB CONC 32.2 g/dL (33.0-37.0); MEAN PLATELET VOLUME 8.9 fl (7.2-11.7); MONO # 0.6 K/uL (0.0-0.8); MONO % 8.4 % (0.0-10.0); NEUT # 4.4 K/uL (1.8-7.0); NEUT % 66.8 % (50.0-75.0); NRBC % 0.1 % (0.0-0.0); RBC 4.52 Mil/uL (3.80-5.20); RED CELL DISTRIBUTION WIDTH 15.5 % (11.5-14.5); WHITE BLOOD COUNT 6.6 K/uL (4.8-10.8)
[2018-09-26 06:23] LABS: BLOOD UREA NITROGEN 10 mg/dl (7-17); CALCIUM 9.7 mg/dL (8.4-10.2); GFR NON-AFRICAN AMERICAN > 60; HDL CHOLESTEROL 47 MG/DL (30-70)
[2018-09-26 06:25] LABS: LDL CHOLESTEROL 159 mg/dL (0-129)
[2018-09-26 07:44] VITALS: RESP 20
[2018-09-26] MEDS ORDERED: Calcium-Vit D 500 mg-200 Units Tab UD PO SCH (09:00)
[2018-09-26] MEDS ORDERED: BEPOTASTINE BESILATE OU SCH (09:00)
[2018-09-26] MEDS ORDERED: Pantoprazole 40 mg EC Tab PO SCH (09:00)
[2018-09-26] MEDS ORDERED: Enoxaparin 40 mg Syringe SC SCH (09:00)
[2018-09-26] MEDS ORDERED: ALENDRONATE 70 MG TAB PO SCH (09:00)
--- NOTE | 2018-09-26 10:17 | CP.PCM.DIS ---
Provider - Provider Date of Admission: 09/25/18 17:08 Attending physician: Bebeto Zarate MD Consults: 09/25/18 17:09 General Surgery Consult Stat Comment: Consulting Provider: Lui Vieyra Consulting Physician: Lui Vieyra Reason for Consult: Early SBO Time Spent in preparation of Discharge (in minutes): 25 Diagnosis - Discharge Diagnosis (1) Chest pain Status: Acute Comment: no recurrence of chest pain. 3 sets of Troponins were within normal limits (2) Urinary tract infection Status: Acute Comment: received 1 gm of IV Rocephin. Cefdenir 300mg PO BID for 7 days Hospital Course - Lab Results Lab Results: Most Recent Lab Values WBC 6.6 K/uL (4.8-10.8) 09/26/18 05:26 RBC 4.52 Mil/uL (3.80-5.20) 09/26/18 05:26 Hgb 12.2 g/dL (12.0-16.0) 09/26/18 05:26 Hct 38.1 % (34.0-47.0) 09/26/18 05:26 MCV 84.2 fl (81.0-99.0) 09/26/18 05:26 MCH 27.1 pg (27.0-31.0) 09/26/18 05:26 MCHC 32.2 g/dL (33.0-37.0) L 09/26/18 05:26 RDW 15.5 % (11.5-14.5) H 09/26/18 05:26 Plt Count 295 K/uL (130-400) 09/26/18 05:26 MPV 8.9 fl (7.2-11.7) 09/26/18 05:26 Neut % (Auto) 66.8 % (50.0-75.0) 09/26/18 05:26 Lymph % (Auto) 21.8 % (20.0-40.0) 09/26/18 05:26 [place] % (Auto) 8.4 % (0.0-10.0) 09/26/18 05:26 Eos % (Auto) 2.1 % (0.0-4.0) 09/26/18 05:26 Baso % (Auto) 0.9 % (0.0-2.0) 09/26/18 05:26 Neut # (Auto) 4.4 K/uL (1.8-7.0) 09/26/18 05:26 Lymph # (Auto) 1.4 K/uL (1.0-4.3) 09/26/18 05:26 [place] # (Auto) 0.6 K/uL (0.0-0.8) 09/26/18 05:26 Eos # (Auto) 0.1 K/uL (0.0-0.7) 09/26/18 05:26 Baso # (Auto) 0.1 K/uL (0.0-0.2) 09/26/18 05:26 PT 12.7 Seconds (9.8-13.1) 09/25/18 12:00 INR 1.1 09/25/18 12:00 APTT 32.6 Seconds (25.6-37.1) 09/25/18 12:00 Sodium 142 mmol/l (132-148) 09/26/18 05:26 Potassium 4.1 MMOL/L (3.6-5.0) 09/26/18 05:26 Chloride 103 mmol/L (98-107) 09/26/18 05:26 Carbon Dioxide 31 mmol/L (22-30) H 09/26/18 05:26 Anion Gap 12 (10-20) 09/26/18 05:26 BUN 10 mg/dl (7-17) 09/26/18 05:26 Creatinine 0.7 mg/dl (0.7-1.2) 09/26/18 05:26 Est GFR ( Amer) > 60 09/26/18 05:26 Est GFR (Non-Af Amer) > 60 09/26/18 05:26 Random Glucose 115 mg/dL (65-105) H 09/26/18 05:26 Calcium 9.7 mg/dL (8.4-10.2) 09/26/18 05:26 Total Bilirubin 0.5 mg/dl (0.2-1.3) 09/25/18 12:00 AST 28 U/L (14-36) 09/25/18 12:00 ALT 16 U/L (9-52) 09/25/18 12:00 Alkaline Phosphatase 79 U/L (38-126) 09/25/18 12:00 Troponin I < 0.0120 ng/mL (0.00-0.120) 09/26/18 05:26 Total Protein 8.3 G/DL (6.3-8.2) H 09/25/18 12:00 Albumin 4.5 g/dL (3.5-5.0) 09/25/18 12:00 Globulin 3.8 gm/dL (2.2-3.9) 09/25/18 12:00 Albumin/Globulin Ratio 1.2 (1.0-2.1) 09/25/18 12:00 Triglycerides 101 mg/DL (0-149) 09/26/18 05:26 Cholesterol 235 mg/dL (0-199) H 09/26/18 05:26 LDL Cholesterol Direct 159 mg/dL (0-129) H 09/26/18 05:26 HDL Cholesterol 47 MG/DL (30-70) 09/26/18 05:26 Lipase 131 U/L (23-300) 09/25/18 12:00 Urine Color [place] (YELLOW) 09/25/18 13:46 Urine Clarity Cloudy (Clear) 09/25/18 13:46 Urine pH 7.0 (5.0-8.0) 09/25/18 13:46 Ur Specific [place] 1.018 (1.003-1.030) 09/25/18 13:46 Urine Protein 30 mg/dL (NEGATIVE) 09/25/18 13:46 Urine Glucose (UA) Neg mg/dL (NEGATIVE) 09/25/18 13:46 Urine Ketones Negative mg/dL (NEGATIVE) 09/25/18 13:46 Urine Blood Negative (NEGATIVE) 09/25/18 13:46 Urine Nitrate Negative (NEGATIVE) 09/25/18 13:46 Urine Bilirubin Negative (NEGATIVE) 09/25/18 13:46 Urine Urobilinogen 0.2-1.0 mg/dL (0.2-1.0) 09/25/18 13:46 Ur Leukocyte Esterase Mod [place]/uL (Negative) 09/25/18 13:46 Urine RBC (Auto) 3 /hpf (0-3) 09/25/18 13:46 Urine Microscopic WBC 5 /hpf (0-5) 09/25/18 13:46 Ur Squamous Epith Cells 6 /hpf (0-5) H 09/25/18 13:46 Amorphous Sediment Rare /ul (<OCC) H 09/25/18 13:46 Urine Bacteria Rare (<OCC) 09/25/18 13:46 Hyaline Casts 3-5 /hpf (0-2) H 09/25/18 13:46 - Hospital Course Hospital Course: 83 yo female with history of HTN and HLD admitted because of on and off chest pain sometimes radiating to the epigastric region. Work ups was negative for ACS but was positive for UTI. Patient was started of Rocephin 1gm IV and discharged in stable condition with Cefdenir 300mg PO BID for 7 days. Discharge Exam - Head Exam Head Exam: NORMAL INSPECTION - Eye Exam Eye Exam: Normal appearance - ENT Exam ENT Exam: Mucous Membranes Moist - Respiratory Exam Respiratory Exam: absent: Rales, Rhonchi, Wheezes, Respiratory Distress - Cardiovascular Exam Cardiovascular Exam: REGULAR RHYTHM, +S1, +S2 - GI/Abdominal Exam GI & Abdominal Exam: Soft. absent: Tenderness - Rectal Exam Rectal Exam: Deferred - Back Exam Back exam: absent: tenderness - Neurological Exam Neurological exam: Alert, Oriented x3 - Psychiatric Exam Psychiatric exam: Normal Affect - Skin Skin Exam: Dry, Intact Discharge Plan - Discharge Medications Prescriptions: Cefdinir [Omnicef] 300 mg PO BID #14 cap - Follow Up Plan Condition: GOOD Disposition: HOME/ ROUTINE
[2018-09-26 11:59] VITALS: BP 120/67; PULSE 83; TEMP 97.6
--- NOTE | 2018-09-26 17:26 | CARD ---
APPROVED REPORT Date of service: 09/26/2018 EKG Measurement Heart [id number] <Conclusion> Sinus rhythm with occasional premature ventricular complexes Nonspecific ST abnormality Abnormal ECG
--- NOTE | 2018-09-26 17:37 | CARD ---
APPROVED REPORT Date of service: 09/25/2018 EKG Measurement Heart [id number] <Conclusion> Sinus rhythm with occasional premature ventricular complexes Otherwise normal ECG
[2018-09-27 08:29] VITALS: O2SAT 18
== END 2018-09-26 13:35 | disposition home or self-care (01) ==
LOC: H.ER 12:56 → H.ERHOLD 17:08 → INTOOBSV 17:08 → H.TEL 20:30
DX: R07.89 Other chest pain (principal); E11.9 Type 2 diabetes mellitus without complications; E78.00 Pure hypercholesterolemia, unspecified; E78.5 Hyperlipidemia, unspecified; I10 Essential (primary) hypertension; K56.609 Unspecified intestinal obstruction, unspecified as to partial versus complete obstruction; M81.0 Age-related osteoporosis without current pathological fracture; N39.0 Urinary tract infection, site not specified; Z79.82 Long term (current) use of aspirin; Z79.83 Long term (current) use of bisphosphonates; F41.9 Anxiety disorder, unspecified; Z79.899 Other long term (current) drug therapy
CPT/HCPCS: 36415; 70450; 71046; 74177; 80048; 80053; 80061; 81003; 83690; 84484; 85025; 85610; 85730; 87040; 87086; 93005; 96365; 99285; G0378; J0696; J1650; Q9967